=== PATIENT | female | born 1960 | race Caucasian/White ===

== ENCOUNTER → 2016-08-16 | Outpatient (CLI) | payer BC ==
--- NOTE | 2016-08-16 15:59 | MAMMOGRAPHY REPORT ---
BILATERAL DIGITAL SCREENING MAMMOGRAM TOMOSYNTHESIS WITH CAD: 08/16/2016 CLINICAL HISTORY: Routine screening. TECHNIQUE: Breast tomosynthesis in addition to standard 2D mammography was performed. Current study was also evaluated with a Computer Aided Detection (CAD) system. COMPARISON: Comparison is made to exams dated: 08/14/2015 mammogram - [facility], mammogram, 06/04/2013 mammogram, 05/31/2012 mammogram, 05/27/2011 mammogram, and 03/31/2010 mammog umberto - [facility]. BREAST COMPOSITION: There are scattered areas of fibroglandular density in both breasts. FINDINGS: There is evidence of prior reduction mammoplasty. There are a few scattered benign-appeari ng microcalcifications. No suspicious mass, architectural distortion or cluster of microcalcificatio ns is seen. IMPRESSION: ACR BI-RADS CATEGORY 1: NEGATIVE There is no mammographic evidence of malignancy. A 1 year screening mammogram is recommended. The pa tient will receive written notification of the results. Approximately 10% of breast cancers are not detected with mammography. A negative mammographic report should not delay biopsy if a clinically suggestive mass is present. Shira Galaviz M.D. ay/:08/16/2016 15:12:07 Airport Engineer: Jenny MORROW)(M), [facility] letter sent: Normal 1/2 BI-RADS Code: ACR BI-RADS Category 1: Negative
== END | disposition home or self-care (01) ==
LOC: C.MAMM 10:58
PROVIDERS: ATTEND Obstetrics & Gynecology
DX: Z12.31 Encounter for screening mammogram for malignant neoplasm of breast (principal)

== ENCOUNTER 2020-05-14 14:20 | Inpatient (IN) ==
[2020-05-14] MEDS ORDERED: KETOROLAC TROMETHAMINE 15 MG/ML VIAL IV ONE (14:43)
[2020-05-14] MEDS ORDERED: SODIUM CHLORIDE 0.9% 1000ML 2,000 ML IV ONE (14:43)
[2020-05-14] MEDS ORDERED: BENZONATATE 100 MG CAPSULE PO ONE (14:43)
--- NOTE | 2020-05-14 14:46 | Emergency Department Note ---
Impression & Plan Acute respiratory failure with hypoxia, Morbid obesity with BMI of 45.0-49.9, adult, COVID-19 virus infection, Cough ED Provider Note Who is CovidNAME: GINETTE MON AGE: 59 SEX: F : 1960 ARRIVES VIA: Walk-In INFORMANT: Patient ED PROVIDER(S): Marcell Morales DO CHIEF COMPLAINT: Covid positive and weak HPI: Patient is a 59-year-old female with a past medical history of thyroid dysfunction who presents to the ER for weakness. Her symptoms started on and she tested positive for Covid on Tuesday. She admits to shortness of breath. She has been having chest pain for the past 2 days. Is worse with coughing. Is midsternal. She also admits to diffuse weakness throughout her entire body including her belly. It is worse with coughing as well. She admits to nausea. No vomiting. Denies any dysuria, urgency, or frequency. She has been drinking a ton but notes that she is not urinating much. She does have a mild headache as well. Intermittent fevers as high as 101. ROS: See above HPI for pertinent positives & negatives. A total of 10 systems reviewed and were otherwise negative. PAST MEDICAL HISTORY:See Below PAST SURGICAL HISTORY:See Below FAMILY HISTORY:See Below SOCIAL HISTORY:See Below HOME MEDICATIONS:See Below ALLERGIES:See Below VITALS:See Below PHYSICAL EXAMINATION: GENERAL: Lying in bed, slightly ill-appearing, disheveled, persistent cough EYE EXAM: normal conjunctiva. PERRL and EOM's grossly intact. OROPHARYNX: no exudate, no erythema, lips, buccal mucosa, and tongue normal and mucous membranes are moist NECK: supple, no nuchal rigidity, no adenopathy, non-tender LUNGS: Clear to auscultation. Normal chest wall mechanics HEART: no murmurs, S1 normal and S2 normal ABDOMEN: abdomen soft, non-tender, normo-active bowel sounds, no masses, no rebound or guarding. UPPER EXTREMITIES: upper extremities are grossly normal. LOWER EXTREMITIES: No pitting edema. NEURO EXAM: Normal sensorium, cranial nerves II-XII grossly intact, normal speech, no gross weakness of arms, no gross weakness of legs. MEDICAL DECISION MAKING: Patient is a 59-year-old female who presents the ER positive with cough and shortness of breath. IV was established blood work obtained. She is found to have a leukopenia 3.8 thousand. No significant anemia. D-dimer was slightly elevated. BMP with LFTs bilirubin was unremarkable. CT angio of the chest showed multifocal pneumonia. BMP and lipase were negative. Patient was given IV fluids. She is given Decadron. She remained on nasal cannula and she dropped to 88%. She became very dyspneic with ambulation. She was updated and discussed with hospitalist for further evaluation. Triage Nursing notes reviewed. Limited review of prior medical records performed Vital Signs: reviewed and remarkable for HTN and tachy Differential diagnosis: Differential diagnoses includes but is not limited to pneumonia, bronchitis, COPD/Asthma exacerbation, pneumothorax, pulmonary embolism, congestive heart failure, acute coronary syndrome ER treatment provided: See below Diagnostics interpreted by me: ECG: Sinus tachycardia rate of 95 Normal axis No PVCs QTC 422 Cardiac Monitoring: An order was placed for continuous cardiac monitoring. The monitor shows a rate of 98 with sinus rhythm. Laboratory studies: As stated above and show below. Imaging studies: Portable AP upright 1 view the chest shows multifocal infiltrate CT Madeline of the chest shows multifocal infiltrates no PEs Consultation(s): Discussed the hospitalist for further evaluation Procedures: none PDMP:reviewed and no issues Critical Care: None Past Med/Surg History Social History Smoking Status: Never smoker Second Hand Exposure: No; Do You Dip or Chew Tobacco: No; Tobacco Cessation Education Requested by Patient: No Hx Alcohol Use: Yes Alcohol type: beer Hx Substance Use: No Preferred Language: Yemeni Communication Ability: Effective Set Up Mechanic Automatic Line Required: No Beliefs That Will Affect Care: None Current Living Situation: Spouse Other Information That Helps Us Care for You: No Feels Safe at Home: Yes Safety Concerns: Feels Safe At This Time Allergies Allergies Allergy/AdvReac Type Severity Reaction Status Date / Time acetaminophen Allergy Intermediate GI SYMPTOMS Verified 05/14/20 15:52 cyclobenzaprine Allergy Intermediate Vomiting Verified 05/14/20 15:52 metaxalone Allergy Intermediate GI SYMPTOMS Verified 05/14/20 15:52 oxycodone Allergy Intermediate GI SYMPTOMS Verified 05/14/20 15:52 Home Meds Home Medications Medication Instructions Recorded Confirmed acyclovir 200 mg PO UD PRN 05/14/20 05/14/20 albuterol sulfate [ProAir HFA] 2 puff INHALATION PRN 05/14/20 benzonatate 100 mg PO 05/14/20 ibuprofen 200 mg PO Q4H PRN 05/14/20 05/14/20 levothyroxine [Levoxyl] 112 mcg PO QAM 05/14/20 05/14/20 meclizine 25 mg PO TID PRN 05/14/20 05/14/20 ondansetron HCl 4 mg PO Q6H PRN 05/14/20 05/14/20 Results & Data (ED) Vital Signs Vital Signs - 24 hr 05/14/20 14:23 05/14/20 14:43 05/14/20 15:23 Temperature 36.8 C Temperature Source Temporal Artery Scan Pulse Rate 107 H Pulse Rate [Exercises] Pulse Rate [Right Finger] 89 Pulse Rate from SpO2 Sensor Pulse Rhythm Regular Pulse Strength Normal Respiratory Rate 18 24 Respiratory Rate [Exercises] Respiratory Effort / Characteristics Non-Labored Spontaneous Non-Labored Respiratory Depth Normal Normal Respiratory Pattern Regular Blood Pressure 157/95 H Blood Pressure [Right Arm] 113/76 Blood Pressure Mean 115 Blood Pressure Mean [Right Arm] 88 Blood Pressure Position Sitting Pulse Oximetry 94 95 95 Pulse Oximetry [Exercises] Oxygen Delivery Method Room Air Room Air Sepsis Recent Fever Within 48 Hours No Sepsis New/Unexplained Change in Mental Status N/A Sepsis Action Taken by Nursing No Action Required 05/14/20 17:52 05/14/20 17:54 05/14/20 18:45 Temperature Temperature Source Pulse Rate 96 H Pulse Rate [Exercises] 110 H Pulse Rate [Right Finger] 93 H Pulse Rate from SpO2 Sensor 97 H Pulse Rhythm Pulse Strength Respiratory Rate 16 19 Respiratory Rate [Exercises] 30 H Respiratory Effort / Characteristics Respiratory Depth Respiratory Pattern Blood Pressure Blood Pressure [Right Arm] 162/85 H Blood Pressure Mean Blood Pressure Mean [Right Arm] 110 Blood Pressure Position Pulse Oximetry 93 94 Pulse Oximetry [Exercises] 87 L Oxygen Delivery Method Room Air Room Air Sepsis Recent Fever Within 48 Hours Sepsis New/Unexplained Change in Mental Status Sepsis Action Taken by Nursing Laboratory Data Result diagrams: 05/14/20 15:11 05/14/20 15:11 Lab Results 05/14/20 05/14/20 05/14/20 Range/Units 15:11 15:11 15:11 WBC 3.83 L (4.8-10.8) K/uL RBC 4.87 (4.2-5.4) M/uL Hgb 15.1 (12.0-16.0) g/dL Hct 43.4 (37-47) % MCV 89.1 (80-100) fL MCH 31.0 (25-34) pg MCHC 34.8 (32-36) g/dL RDW Std Deviation 40.7 (36.4-46.3) fL RDW Coeff of Esteban 12.4 (11.5-14.5) % Plt Count 129 L (130-400) K/uL MPV 11.3 H (7.4-10.4) fL Immature Gran % (Auto) 0.5 % Neut % (Auto) 67.0 % Lymph % (Auto) 17.8 % King % (Auto) 14.4 % Eos % (Auto) 0.0 % Baso % (Auto) 0.3 % Neut # (Auto) 2.57 (1.4-6.5) K/uL Lymph # (Auto) 0.68 L (1.2-3.4) K/uL King # (Auto) 0.55 (0.11-0.59) K/uL Eos # (Auto) 0.00 (0-0.5) K/uL Baso # (Auto) 0.01 (0-0.2) K/uL Immature Gran # (Auto) 0.02 (0.00-0.02) K/uL Toxic Vacuolation 1+ ESR (0-21) mm/hr D-Dimer 840 H* (0-500) ug/L FEU Sodium 137 (136-145) mmol/L Potassium 3.8 (3.5-5.1) mmol/L Chloride 103 (98-107) mmol/L Carbon Dioxide 27 (21-32) mmol/L Anion Gap 7.0 (3-11) BUN 9 (7-18) mg/dl Creatinine 0.84 (0.6-1.2) mg/dl Est Cr Clr Drug Dosing 94.5 ml/min Est GFR ( Amer) 89.4 Est GFR (Non-Af Amer) 77.2 BUN/Creatinine Ratio 11.0 (10-20) Glucose 113 H (70-99) mg/dl Calcium 8.9 (8.5-10.1) mg/dl Total Bilirubin 0.7 (0.2-1) mg/dl AST 46 H (15-37) U/L ALT 46 (12-78) U/L Alkaline Phosphatase 98 (45-117) U/L Troponin I < 0.015 (0-0.045) ng/ml C-Reactive Protein (0-0.29) mg/dl NT-Pro-B Natriuret Pep (0-900) pg/ml Total Protein 8.0 (6.4-8.2) gm/dl Albumin 3.1 L (3.4-5.0) gm/dl Globulin 4.9 H (2.5-4.0) gm/dl Albumin/Globulin Ratio 0.6 L (0.9-2) Lipase 45 L (73-393) U/L 05/14/20 05/14/20 Range/Units 15:11 15:11 WBC (4.8-10.8) K/uL RBC (4.2-5.4) M/uL Hgb (12.0-16.0) g/dL Hct (37-47) % MCV (80-100) fL MCH (25-34) pg MCHC (32-36) g/dL RDW Std Deviation (36.4-46.3) fL RDW Coeff of Esteban (11.5-14.5) % Plt Count (130-400) K/uL MPV (7.4-10.4) fL Immature Gran % (Auto) % Neut % (Auto) % Lymph % (Auto) % King % (Auto) % Eos % (Auto) % Baso % (Auto) % Neut # (Auto) (1.4-6.5) K/uL Lymph # (Auto) (1.2-3.4) K/uL King # (Auto) (0.11-0.59) K/uL Eos # (Auto) (0-0.5) K/uL Baso # (Auto) (0-0.2) K/uL Immature Gran # (Auto) (0.00-0.02) K/uL Toxic Vacuolation ESR 36 H (0-21) mm/hr D-Dimer (0-500) ug/L FEU Sodium (136-145) mmol/L Potassium (3.5-5.1) mmol/L Chloride (98-107) mmol/L Carbon Dioxide (21-32) mmol/L Anion Gap (3-11) BUN (7-18) mg/dl Creatinine (0.6-1.2) mg/dl Est Cr Clr Drug Dosing ml/min Est GFR ( Amer) Est GFR (Non-Af Amer) BUN/Creatinine Ratio (10-20) Glucose (70-99) mg/dl Calcium (8.5-10.1) mg/dl Total Bilirubin (0.2-1) mg/dl AST (15-37) U/L ALT (12-78) U/L Alkaline Phosphatase (45-117) U/L Troponin I (0-0.045) ng/ml C-Reactive Protein 5.72 H (0-0.29) mg/dl NT-Pro-B Natriuret Pep 44 (0-900) pg/ml Total Protein (6.4-8.2) gm/dl Albumin (3.4-5.0) gm/dl Globulin (2.5-4.0) gm/dl Albumin/Globulin Ratio (0.9-2) Lipase (73-393) U/L Administered Medications Discontinued Medications Benzonatate (Benzonatate 100 Mg Capsule) 100 mg PO NOW ONE Stop: 05/14/20 14:44 Last Admin: 05/14/20 15:18 Dose: 100 mg Documented by: [id number] Dexamethasone Sodium Phosphate (DexamethasonePf 10 Mg/Ml Vial) 6 mg IV NOW ONE Stop: 05/14/20 18:08 Last Admin: 05/14/20 18:31 Dose: 6 mg Documented by: [id number] Sodium Chloride (Nss 1000ml) 2,000 mls @ 999 mls/hr IV .Q2H1M ONE Stop: 05/14/20 16:43 Last Infusion: 05/14/20 17:47 Dose: 0 mls/hr Documented by: [id number] Admin: 05/14/20 15:18 Dose: 999 mls/hr Documented by: [id number] Ioversol (Optiray 320 125ml) 119 ml IV ONCE ONE Stop: 05/14/20 16:56 Last Admin: 05/14/20 16:58 Dose: 119 ml Documented by: [id number] Ketorolac Tromethamine (Ketorolac Tromethamine 15 Mg/Ml Vial) 15 mg IV NOW ONE Stop: 05/14/20 14:44 Last Admin: 05/14/20 15:18 Dose: 15 mg Documented by: [id number] Morphine Sulfate (Morphine Sulfate 2 Mg/Ml Carp) 2 mg IV NOW STA Stop: 05/14/20 19:29 Last Admin: 05/14/20 19:47 Dose: 2 mg Documented by: [id number] Ondansetron HCl (Ondansetron Inj 2 Mg/Ml 2 Ml Vial) 4 mg IV NOW STA Stop: 05/14/20 19:28 Last Admin: 05/14/20 19:47 Dose: 4 mg Documented by: [id number] Discharge Plan Visit Data Chief Complaint: Cough Stated Complaint: [id number] OXYGEN-TEST POSITIVE TUESDAY ED Provider: Marcell Morales Discharge Problem: Acute respiratory failure with hypoxia, Morbid obesity with BMI of 45.0-49.9, adult, COVID-19 virus infection, Cough Patient Disposition: Admitted As Inpatient Discharge Instructions Interventions: ED Discharge Assessment Last Done: 05/14/20 19:53
[2020-05-14 15:29] LABS: Basophils # (auto) 0.01 K/uL (0-0.2); Basophils % (auto) 0.3 %; Hematocrit (blood only) 43.4 % (37-47); Hemoglobin 15.1 g/dL (12.0-16.0); Immature Granulocytes # (auto) 0.02 K/uL (0.00-0.02); Immature Granulocytes % (auto) 0.5 %; Lymphocytes # (auto) 0.68 K/uL (1.2-3.4); Lymphocytes % (auto) 17.8 %; Mean Corpuscular Hgb Conc 34.8 g/dL (32-36); Mean Corpuscular Volume 89.1 fL (80-100); Mean Platelet Volume 11.3 fL (7.4-10.4); Monocytes # (auto) 0.55 K/uL (0.11-0.59); Monocytes % (auto) 14.4 %; Neutrophils # (auto) 2.57 K/uL (1.4-6.5); Platelet Count 129 K/uL (130-400); RDW Coefficient of Variation 12.4 % (11.5-14.5); RDW Standard Deviation 40.7 fL (36.4-46.3); Red Blood Count 4.87 M/uL (4.2-5.4); White Blood Count 3.83 K/uL (4.8-10.8)
[2020-05-14 15:41] LABS: D Dimer 840 ug/L FEU (0-500)
[2020-05-14 15:54] LABS: Toxic Vacuolation 1+
--- NOTE | 2020-05-14 16:11 | XRay Report ---
XR chest 1V portable CLINICAL HISTORY: Atypical chest pain COMPARISON STUDY: Chest x-ray dated 10/06/2015 FINDINGS: The heart is mildly enlarged. There are bilateral interstitial opacities. Likely diagnostic considerations include multifocal pneumonia versus pulmonary edema.[There are no significant pleural effusions. IMPRESSION: 1. Bilateral interstitial pulmonary opacities. Likely diagnostic considerations include multifocal pn eumonia versus pulmonary edema. A multifocal pneumonia is favored. Clinical and radiographic follow-u p is recommended. ACT 112: Negative or not required by law. Electronically signed by: Reggie James M.D. 05/14/2020 4:10 PM
--- NOTE | 2020-05-14 16:11 | Electrocardiogram Report ---
Test Reason : Blood Pressure : / mmHG Vent. Rate : 095 BPM Atrial Rate : 095 BPM P-R Int : 154 ms QRS Dur : 066 ms QT Int : 336 ms P-R-T Axes : 050 003 051 degrees QTc Int : 422 ms Poor data quality, interpretation may be adversely affected Normal sinus rhythm Poor R wave progression, consider anterior TX vs. lead placement vs. LVH Abnormal ECG When compared with ECG of 21-MAR-2012 15:37, Nonspecific T wave abnormality now evident in Lateral leads Confirmed by Andrade Wheeler ([id number]) on 05/14/2020 4:10:43 PM Referred By: Confirmed By:Quan Wheeler
[2020-05-14 16:27] LABS: Alanine Aminotransferase 46 U/L (12-78); Albumin Globulin Ratio 0.6 (0.9-2); Albumin Level 3.1 gm/dl (3.4-5.0); Alkaline Phosphatase 98 U/L (45-117); Aspartate Aminotransferase 46 U/L (15-37); Bilirubin,Total 0.7 mg/dl (0.2-1); Blood Urea Nitrogen 9 mg/dl (7-18); Calcium 8.9 mg/dl (8.5-10.1); Carbon Dioxide 27 mmol/L (21-32); Chloride 103 mmol/L (98-107); Creatinine Clr Calc Pharmacy 94.5 ml/min; Est GFR (African American) 89.4; Est GFR (Non-African American) 77.2; Globulin 4.9 gm/dl (2.5-4.0); Glucose 113 mg/dl (70-99); Lipase 45 U/L (73-393); Potassium 3.8 mmol/L (3.5-5.1); Sodium 137 mmol/L (136-145); Troponin I < 0.015 ng/ml (0-0.045)
[2020-05-14] MEDS ORDERED: OPTIRAY 320 125ml IV ONE (16:55)
--- NOTE | 2020-05-14 17:13 | CT Scan Report ---
CT ANGIOGRAM OF THE CHEST CLINICAL HISTORY: Shortness of breath. Positive d-dimer. Covid positive patient COMPARISON STUDY: Chest x-ray dated 05/14/2020 TECHNIQUE: Following the IV administration of 119 mL of Optiray-320, CT angiogram of the thorax was p erformed from the thoracic inlet to the lung bases utilizing the pulmonary embolus protocol. Images a re reviewed in the axial, sagittal, and coronal planes. IV contrast was administered without complica tion. MIP imaging was performed. A dose lowering technique was utilized adhering to the principles o f ALARA. CT DOSE: 703.34 mGy.cm FINDINGS: There are mildly enlarged hilar lymph nodes, likely reactive. There was no evidence of thoracic aortic dilatation. There are no pulmonary artery filling defects to indicate acute pulmonary embolism. Evaluation is sli ghtly limited due to respiratory motion artifact No pleural effusions are visualized. There are multifocal groundglass opacities consistent with a multifocal pneumonia. The findings are t ypical but not diagnostic of Covid 19 pneumonia IMPRESSION: 1. No evidence of acute pulmonary embolism 2. Multifocal groundglass pulmonary opacities consistent with a multifocal pneumonia. The findings ar e typical of Covid 19 pneumonia ACT 112: Negative or not required by law. Electronically signed by: Reggie James M.D. 05/14/2020 5:12 PM
[2020-05-14] MEDS ORDERED: dexAMETHasone**PF** 10 MG/ML VIAL IV ONE (18:07)
--- NOTE | 2020-05-14 18:29 | History & Physical Report ---
Date of Service May 14, 2020 Assessment & Plan (1) COVID-19 virus infection: -Admit to COVID-19 unit, airborne isolation -Found to be hypoxic with O2 sats in 86% during ambulation on room air, normally does not require any O2 at baseline, tachycardic and elevated respiratory rate in the 30s during ambulation. -2 L O2 as needed, wean as tolerate -Start on Decadron, remdesivir, incentive spirometry, flutter, proning for 30 minutes as tolerated -Check esr, crp, procal, ferritin, pro-bnp -CTA reviewed and negative for PE, shows multifocal pna -Follow BCx x2, Ua negative and urine culture (2) Acute respiratory failure with hypoxia: -As above, secondary to coronavirus (3) Morbid obesity with BMI of 45.0-49.9, adult: -BMI 48.4, diet and exercise to be encouraged (4) Bronchitis: -History of such - will use albuterol hfa as needed (5) DVT prophylaxis: - teds, scds CODE: Full code-discussed with patient over the phone Dispo: From home, likely to remain in the hospital x 1-2 days Examination to be conducted by attending physician, please refer to his addendum for documentation. Information in the HPI was obtained via phone call due to COVID-19 infection, I did not personally go into the patient's room. History of Present Illness Chief Complaint: Shortness of breath Primary Care Provider: Severo Cali, This is a 59 yo F with PMhx of metabolic syndrome, hypothyroidism, morbid obesity with BMI of 48.4, bronchitis, and vertigo who presents to the ER with acute onset of cough and shortness of breath. Here while in the ER she was found to be 86% on room air during ambulation, heart rate in the 110s and respiratory rate in the 30s. Pt was having weakness, cough, stuffy nose, headache and went to get tested on 05/10/20. She lives at home with her and he is also positive. She was aware of her positive results on 05/11. Since Tuesday, the patient hasn't been out of bed due to ill feeling, very poor appetite, abdominal pain and cramping, she has also been nauseated. Denies diarrhea. She was febrile with fever of 101 today despite taking ibuprofen and tylenol in the past few days. She reports wasn't getting any better, felt chest heaviness, no pain per say, she had an oximeter at home and was at 88% at home and therefore came to the ER. 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 She wears a mask when out in public. She denies known positive contacts. She is found to be Covid positive after having COVID-19 testing conducted at [facility] urgent care clinic on 05/10/2020. Allergies Allergy/AdvReac Type Severity Reaction Status Date / Time cyclobenzaprine Allergy Intermediate Vomiting Verified 05/14/20 15:52 metaxalone Allergy Intermediate GI SYMPTOMS Verified 05/14/20 15:52 oxycodone Allergy Intermediate GI SYMPTOMS Verified 05/14/20 15:52 Home Medications Medication Instructions Recorded Confirmed Type acyclovir 200 mg PO UD PRN 05/14/20 05/14/20 History albuterol sulfate [ProAir HFA] 2 puff INHALATION PRN 05/14/20 History benzonatate 100 mg PO 05/14/20 History ibuprofen 200 mg PO Q4H PRN 05/14/20 05/14/20 History levothyroxine [Levoxyl] 112 mcg PO QAM 05/14/20 05/14/20 History meclizine 25 mg PO TID PRN 05/14/20 05/14/20 History ondansetron HCl 4 mg PO Q6H PRN 05/14/20 05/14/20 History Past Med/Surg History Social History Smoking Status: Never smoker Second Hand Exposure: No; Do You Dip or Chew Tobacco: No; Tobacco Cessation Education Requested by Patient: No Hx Alcohol Use: Yes Alcohol type: beer Hx Substance Use: No Preferred Language: Maltese Communication Ability: Effective Composition Weatherboard Applier Required: No Beliefs That Will Affect Care: None Current Living Situation: Spouse Other Information That Helps Us Care for You: No Feels Safe at Home: Yes Safety Concerns: Feels Safe At This Time Assistive Devices: Oxygen - Continuous Review of Systems Review of Systems: Constitutional: + fever, sweats, and weakness. Eyes: No diplopia, no worsening or blurred vision ENT: normal hearing, no trouble swallowing Respiratory: As per HPI. + chest heaviness, +cough, no sputum, no dyspnea at rest , + Dyspnea on exertion Cardiovascular: No chest pain, tightness or palpitations Abdomen: + pain, +nausea, no vomiting, diarrhea or constipation Musculoskeletal: No joint pain, calf pain, swelling Neurologic: No weakness, numbness/tingling, or balance problems Psychiatric: No anxiety or depression Skin: No rash or itch Physical Exam Physical Exam: Please refer to attending addendum as I did not personally examine the patient due to COVID-1 infection. Results & Data Results & Data ([facility]) Vital Signs (Past 12 Hours) Vital Signs Temp Pulse Pulse Pulse Resp Resp BP 05/14/20 17:54 110 H 30 H 05/14/20 17:52 93 H 16 05/14/20 15:23 89 24 05/14/20 14:43 05/14/20 14:23 36.8 C 107 H 18 157/95 H BP Pulse Ox Pulse Ox 05/14/20 17:54 87 L 05/14/20 17:52 162/85 H 93 05/14/20 15:23 113/76 95 05/14/20 14:43 95 05/14/20 14:[address] ANGIOGRAM OF THE CHEST CLINICAL HISTORY: Shortness of breath. Positive d-dimer. Covid positive patient COMPARISON STUDY: Chest x-ray dated 05/14/2020 TECHNIQUE: Following the IV administration of 119 mL of Optiray-320, CT angiogram of the thorax was performed from the thoracic inlet to the lung bases utilizing the pulmonary embolus protocol. Images are reviewed in the axial, sagittal, and coronal planes. IV contrast was administered without complication. MIP imaging was performed. A dose lowering technique was utilized adhering to the principles of ALARA. CT DOSE: 703.34 mGy.cm FINDINGS: There are mildly enlarged hilar lymph nodes, likely reactive. There was no evidence of thoracic aortic dilatation. There are no pulmonary artery filling defects to indicate acute pulmonary embolism. Evaluation is slightly limited due to respiratory motion artifact No pleural effusions are visualized. There are multifocal groundglass opacities consistent with a multifocal pneumonia. The findings are typical but not diagnostic of Covid 19 pneumonia IMPRESSION: 1. No evidence of acute pulmonary embolism 2. Multifocal groundglass pulmonary opacities consistent with a multifocal pneumonia. The findings are typical of Covid 19 pneumonia XR chest 1V portable CLINICAL HISTORY: Atypical chest pain COMPARISON STUDY: Chest x-ray dated 10/06/2015 FINDINGS: The heart is mildly enlarged. There are bilateral interstitial opacities. Likely diagnostic considerations include multifocal pneumonia versus pulmonary edema.[There are no significant pleural effusions. IMPRESSION: 1. Bilateral interstitial pulmonary opacities. Likely diagnostic considerations include multifocal pneumonia versus pulmonary edema. A multifocal pneumonia is f avored. Clinical and radiographic follow-up is recommended. ECG Additional Comments: Vent. Rate : 095 BPM Atrial Rate : 095 BPM P-R Int : 154 ms QRS Dur : 066 ms QT Int : 336 ms P-R-T Axes : 050 003 051 degrees QTc Int : 422 ms Poor data quality, interpretation may be adversely affected Normal sinus rhythm Poor R wave progression, consider anterior NH vs. lead placement vs. LVH Abnormal ECG When compared with ECG of 21-MAR-2012 15:37, Nonspecific T wave abnormality now evident in Lateral leads Confirmed by Andrade Wheeler ([id number]) on 05/14/2020 4:10:43 PM Code Status & VTE Plan Code Status Full code - discussed with pt with at bedside Supervising Physician Co-Signing Physician Notes Patient is 59-year-old female with past medical history of hypothyroidism and morbid obesity presents to the ED with worsening shortness of breath. Patient reported her symptoms started Tuesday and have started to progressively get worse also reports productive cough. Does report being febrile at home. Denies any nausea or vomiting. Appetite has been okay. Denies any chest pain, abdominal pain, diarrhea or any dysuria rest of the review of system is negative aspirin is also diagnosed with COVID-19 Acute hypoxic respiratory failure COVID-19 pneumonia History of hypothyroid Will start patient on Decadron/remdesivir. I did discuss regarding plasma with her, she stated that she is not sure about it yet. We will obtain C RP, ESR, ferritin and procalcitonin levels. I performed a history and physical examination of the patient on 05/14/20, including specifically H&P. I have discussed the patient's management with the advanced practitioner. Please refer to the Bela Stanley note for the documented findings and plan of care.
[2020-05-14 19:21] LABS: C Reactive Protein 5.72 mg/dl (0-0.29)
[2020-05-14] MEDS ORDERED: ONDANSETRON INJ 2 MG/ML 2 ML VIAL IV STA (19:27)
[2020-05-14] MEDS ORDERED: MoRPHine SULFATE 2 MG/ML CARP IV STA (19:28)
[2020-05-14] MEDS ORDERED: ONDANSETRON 4 MG OD TAB PO PRN (20:33)
[2020-05-14] MEDS ORDERED: MECLIZINE HCL 25 MG TAB PO PRN (20:34)
[2020-05-14] MEDS ORDERED: REMDESIVIR 200 MG in SODIUM CHLORIDE 0.9% 210 ML IV ONE (21:30)
[2020-05-14] MEDS ORDERED: ACETAMINOPHEN 325 MG TAB PO STA (23:39)
[2020-05-14] MEDS ORDERED: SODIUM CHLORIDE 0.9% 10ML FLUSH IV SCH (23:40)
[2020-05-14] MEDS ORDERED: ACETAMINOPHEN 325 MG TAB ONE (23:48)
[2020-05-15 04:13] LABS: Appearance Urine Clear (Clear); Bacteria Urine Automated Negative (Negative); Bilirubin Urine Negative (Negative); Blood Urine Negative (Negative); Color Urine Yellow; Epithelial Cell Urine Auto 20-30 /lpf (0-5); Glucose Urine UA Negative (Negative); Ketones Urine Negative (Negative); Leukocyte Esterase Urine 1+ (Negative); Nitrite Urine Negative (Negative); Protein Urine Trace (Negative); RBC Urine Automated 0-4 /hpf (0-4); Specific Gravity Urine 1.025 (1.000-1.030); Urobilinogen Urine Negative (Negative)
[2020-05-15] MEDS: LEVOTHYROXINE SODIUM 112 MCG TABLET PO SCH (06:12)
[2020-05-15 07:52] LABS: Hematocrit (blood only) 40.4 % (37-47); Hemoglobin 13.7 g/dL (12.0-16.0); Mean Corpuscular Hemoglobin 30.5 pg (25-34); Mean Corpuscular Hgb Conc 33.9 g/dL (32-36); Mean Platelet Volume 11.7 fL (7.4-10.4); Platelet Count 121 K/uL (130-400); RDW Coefficient of Variation 12.4 % (11.5-14.5); RDW Standard Deviation 40.5 fL (36.4-46.3); Red Blood Count 4.49 M/uL (4.2-5.4); White Blood Count 2.52 K/uL (4.8-10.8)
[2020-05-15] MEDS: dexAMETHasone 6 MG in SYRINGE 0 ML IV SCH (08:14)
[2020-05-15 08:27] LABS: Alanine Aminotransferase 39 U/L (12-78); Albumin Level 2.9 gm/dl (3.4-5.0); Aspartate Aminotransferase 36 U/L (15-37); BUN Creatinine Ratio 14.2 (10-20); Bilirubin Direct < 0.1 mg/dl (0-0.2); Blood Urea Nitrogen 9 mg/dl (7-18); Calcium 8.6 mg/dl (8.5-10.1); Carbon Dioxide 25 mmol/L (21-32); Chloride 107 mmol/L (98-107); Est GFR (African American) 113.7; Est GFR (Non-African American) 98.1; Glucose 139 mg/dl (70-99); Potassium 3.6 mmol/L (3.5-5.1); Sodium 138 mmol/L (136-145)
[2020-05-15 08:30] LABS: Albumin Globulin Ratio 0.7 (0.9-2); Alkaline Phosphatase 86 U/L (45-117); Bilirubin,Total 0.5 mg/dl (0.2-1); Globulin 3.9 gm/dl (2.5-4.0); Total Protein 6.8 gm/dl (6.4-8.2)
[2020-05-15] MEDS: BENZONATATE 100 MG CAPSULE PO PRN ×4 (09:40→23:16)
[2020-05-15] MEDS: MoRPHine SULFATE 2 MG/ML CARP IV PRN ×3 (09:40→23:16)
--- NOTE | 2020-05-15 11:07 | Hospitalist Progress Note ---
Date of Service May 15, 2020 Assessment & Plan (1) COVID-19 virus infection: Patient was found to be hypoxic on admission with saturation at 86%. Currently she remains on 2 L of nasal cannula. Reports that shortness of breath is improved continues to have productive cough now we will continue with Decadron/remdesivir. Incentive spirometer and flutter therpay has been ordered. CTA negative for PE multifocal pneumonia likely secondary to COVID-19. Blood and urine cultures were obtained on admission, pending. ESR of 36, CRP of 5.72, BNP of 44 (2) Acute respiratory failure with hypoxia: -As above, secondary to coronavirus (3) Morbid obesity with BMI of 45.0-49.9, adult: -BMI 48.4, diet and exercise to be encouraged (4) Bronchitis: Continue with albuterol as needed (5) DVT prophylaxis: - teds, scds CODE: Full code Admission and Anticipated Discharge Date Admission Date: May 14, 2020 Subjective Patient is doing okay this morning. He reports his shortness of breath is improved. Does have productive cough now. Denies any chest pain, palpitations or any dizziness does report abdominal discomfort with the coughing. Denies any diarrhea or dysuria. Rest of the review of systems negative. Review of Systems Review of Systems: All systems reviewed & are unremarkable except as noted in HPI & below Physical Exam Physical Exam: General: A&Ox3 HENT: NCAT, MMM, EOMI Eyes: PERRLA Neck: Supple, normal range of motion CVS: normal rate and rhythm Resp: b/l decreased breath sounds likely secondary to body habitus Abdomen: Soft, ND/NT, +BS Extremities: No c/c/e Neuro: face symmetric, strength grossly equal, no focal deficit Skin: warm and dry, no rashes/lesions/errythema MSK: normal ROM, no joint swelling/erythema Results & Data Results & Data ([facility]) Vital Signs (Past 12 Hours) Vital Signs Temp Pulse Pulse Resp BP Pulse Ox 05/15/20 08:00 62 05/15/20 07:22 36.7 C 69 20 138/86 92 05/15/20 03:56 36.6 C 74 20 117/79 93 05/15/20 01:19 37.2 C 05/14/20 23:36 38.2 C H 05/14/20 23:15 37.5 C 90 18 145/80 H 93
[2020-05-15] MEDS: ACETAMINOPHEN 325 MG TAB PO PRN (11:35)
[2020-05-15] MEDS: ENOXAPARIN INJ 40 MG/0.4 ML SYR SQ SCH ×2 (12:52→20:41)
[2020-05-15] MEDS: SODIUM CHLORIDE 0.9% 10ML FLUSH IV SCH (20:40)
[2020-05-15] MEDS: REMDESIVIR 100 MG in SODIUM CHLORIDE 0.9% 230 ML IV SCH (20:40)
[2020-05-16] MEDS: LEVOTHYROXINE SODIUM 112 MCG TABLET PO SCH (06:07)
[2020-05-16] MEDS: BENZONATATE 100 MG CAPSULE PO PRN ×2 (06:07→16:27)
[2020-05-16 07:30] LABS: Hemoglobin 13.9 g/dL (12.0-16.0); Mean Corpuscular Hemoglobin 30.9 pg (25-34); Mean Corpuscular Hgb Conc 34.8 g/dL (32-36); Mean Corpuscular Volume 88.9 fL (80-100); Mean Platelet Volume 11.6 fL (7.4-10.4); Platelet Count 159 K/uL (130-400); RDW Coefficient of Variation 12.4 % (11.5-14.5); RDW Standard Deviation 40.4 fL (36.4-46.3); White Blood Count 4.47 K/uL (4.8-10.8)
[2020-05-16 07:58] LABS: Albumin Level 2.7 gm/dl (3.4-5.0); BUN Creatinine Ratio 21.4 (10-20); Calcium 8.9 mg/dl (8.5-10.1); Creatinine Clr Calc Pharmacy 114.4 ml/min; Est GFR (African American) 111.5; Est GFR (Non-African American) 96.2; Potassium 3.5 mmol/L (3.5-5.1)
[2020-05-16 08:01] LABS: Albumin Globulin Ratio 0.7 (0.9-2); Bilirubin,Total 0.3 mg/dl (0.2-1); Globulin 3.8 gm/dl (2.5-4.0); Total Protein 6.5 gm/dl (6.4-8.2)
[2020-05-16] MEDS ORDERED: ALBUT/IPRATROP 3MG/0.5MG NEB 3 ML VIAL NEB PRN (08:13)
[2020-05-16] MEDS: dexAMETHasone 6 MG in SYRINGE 0 ML IV SCH (09:26)
[2020-05-16] MEDS: ENOXAPARIN INJ 40 MG/0.4 ML SYR SQ SCH ×2 (09:26→20:57)
[2020-05-16] MEDS ORDERED: DOCUSATE SODIUM 100 MG CAP PO PRN (11:15)
[2020-05-16] MEDS: ONDANSETRON INJ 2 MG/ML 2 ML VIAL IV PRN ×2 (11:31→23:39)
[2020-05-16] MEDS: POLYETHYLENE (MIRALAX) 17 GM PACK PO PRN (11:31)
--- NOTE | 2020-05-16 16:06 | Hospitalist Progress Note ---
Date of Service May 16, 2020 Assessment & Plan (1) COVID-19 virus infection: Acute respiratory failure with hypoxia COVID-19 pneumonia -CTA:No evidence of acute pulmonary embolism. Multifocal groundglass pulmonary opacities consistent with a multifocal pneumonia. The findings are typical of Covid 19 pneumonia COVID Screen:Positive on 05/10/20 CRP:5.72 D-Dimer:840 Blood Cultures: No growth to date Continue Remdesivir, Dexamethasone as per protocol Isolation precautions--Airborne/Contact Consult Pulmonology/ID if needed Encourage frequent Proning Continue Supplemental Oxygen as needed DVT prophylaxis on Lovenox Monitor LFTs, renal function while on Remdesivir Transition to high flow oxygen as needed Antitussives, lasix, Nebs as needed Pulmonary Hygiene Check Procalcitonin in AM Hypothyroidism Continue Levothyroxine (2) Acute respiratory failure with hypoxia: As above (3) Morbid obesity with BMI of 45.0-49.9, adult: 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 (4) Bronchitis: Secondary to COVID (5) DVT prophylaxis: Lovenox SQ CODE STATUS: Full code Admission and Anticipated Discharge Date Admission Date: May 14, 2020 Subjective Patient is seen and examined at bedside States feeling extremely tired Denies any significant dyspnea Reports cough with expectoration Denies chest pain, dizziness, nausea, abd pain, diarrhea Offers no other complaints Review of Systems Review of Systems: All systems reviewed & are unremarkable except as noted in HPI & below Physical Exam Physical Exam: Physical Exam: Vitals signs as noted above General Appearance:Morbidly Obese, no apparent distress Head: normocephalic, Atraumatic Eyes: normal inspection, EOMI Neck: supple, Trachea midline Respiratory/Chest: Decreased breath sounds, CTA, No accessory muscle use Cardiovascular: S1, S2, No murmur Abdomen/GI:Soft, Non tender, Bowel sounds present Extremities/Musculoskelatal:normal inspection, no edema Neurologic/Psych:AAOX3, grossly no focal neurological deficits Skin: normal color, warm Results & Data Results & Data ([facility]) Vital Signs (Past 12 Hours) Vital Signs Temp Pulse Pulse Resp BP Pulse Ox 05/16/20 15:52 36.5 C 74 18 146/86 H 87 L 05/16/20 15:40 36.8 C 73 24 115/78 90 05/16/20 12:31 36.5 C 74 19 130/76 90 05/16/20 07:33 37.1 C 66 20 116/72 92 05/16/20 06:20 68 Laboratory Results Short CBC 05/16/20 Range/Units 06:24 WBC 4.47 L (4.8-10.8) K/uL Hgb 13.9 (12.0-16.0) g/dL Hct 40.0 (37-47) % Plt Count 159 (130-400) K/uL BMP 05/16/20 06:24 Sodium 138 Potassium 3.5 Chloride 105 Carbon Dioxide 28 BUN 15 D Creatinine 0.70 Glucose 116 H Calcium 8.9 Liver Function 05/16/20 Range/Units 06:24 Total Bilirubin 0.3 (0.2-1) mg/dl AST 65 H (15-37) U/L ALT 56 (12-78) U/L Alkaline Phosphatase 85 (45-117) U/L Albumin 2.7 L (3.4-5.0) gm/dl
[2020-05-16] MEDS: REMDESIVIR 100 MG in SODIUM CHLORIDE 0.9% 230 ML IV SCH (19:41)
[2020-05-16] MEDS: ALBUTEROL HFA 8 GM INHALER INH PRN (19:49)
[2020-05-16] MEDS: SODIUM CHLORIDE 0.9% 10ML FLUSH IV SCH (20:59)
[2020-05-16] MEDS: MoRPHine SULFATE 2 MG/ML CARP IV PRN (23:36)
[2020-05-17] MEDS: ONDANSETRON INJ 2 MG/ML 2 ML VIAL IV PRN ×2 (05:50→11:27)
[2020-05-17] MEDS: LEVOTHYROXINE SODIUM 112 MCG TABLET PO SCH (06:17)
[2020-05-17] MEDS: BENZONATATE 100 MG CAPSULE PO PRN (06:17)
[2020-05-17 06:21] LABS: Hematocrit (blood only) 40.2 % (37-47); Hemoglobin 13.8 g/dL (12.0-16.0); Mean Corpuscular Hemoglobin 30.7 pg (25-34); Mean Corpuscular Hgb Conc 34.3 g/dL (32-36); Mean Corpuscular Volume 89.3 fL (80-100); Mean Platelet Volume 11.7 fL (7.4-10.4); Platelet Count 160 K/uL (130-400); RDW Coefficient of Variation 12.3 % (11.5-14.5); RDW Standard Deviation 40.1 fL (36.4-46.3); White Blood Count 3.99 K/uL (4.8-10.8)
[2020-05-17 06:52] LABS: Albumin Level 2.8 gm/dl (3.4-5.0); BUN Creatinine Ratio 24.2 (10-20); Calcium 8.5 mg/dl (8.5-10.1); Creatinine Clr Calc Pharmacy 123.2 ml/min; Est GFR (African American) 114.2; Est GFR (Non-African American) 98.6; Magnesium 2.2 mg/dl (1.8-2.4); Potassium 3.4 mmol/L (3.5-5.1)
[2020-05-17 06:55] LABS: Albumin Globulin Ratio 0.8 (0.9-2); Bilirubin,Total 0.4 mg/dl (0.2-1); Globulin 3.7 gm/dl (2.5-4.0); Total Protein 6.5 gm/dl (6.4-8.2)
[2020-05-17] MEDS ORDERED: POTASSIUM CHLORIDE CRTAB 20 MEQ TABCR PO ONE (07:46)
[2020-05-17] MEDS: dexAMETHasone 6 MG in SYRINGE 0 ML IV SCH (08:05)
[2020-05-17] MEDS: ENOXAPARIN INJ 40 MG/0.4 ML SYR SQ SCH ×2 (08:06→20:50)
[2020-05-17] MEDS: POLYETHYLENE (MIRALAX) 17 GM PACK PO PRN (08:18)
--- NOTE | 2020-05-17 08:27 | XRay Report ---
XR chest 1V portable HISTORY: Shortness of breath. COVID COMPARISON: 05/14/2020. FINDINGS: There are low lung volumes. The heart remains mildly enlarged. No pleural effusions. No pne umothorax. Extensive bilateral airspace opacities consistent with a pneumonia. This has progressed in the interval. IMPRESSION: Progressive bilateral airspace opacities consistent with a multifocal pneumonia. ACT 112: Negative or not required by law. Electronically signed by: Lenny Sam M.D. 05/17/2020 8:26 AM
[2020-05-17] MEDS ORDERED: FUROSEMIDE 20 MG TAB PO ONE (10:30)
[2020-05-17] MEDS: ALBUTEROL HFA 8 GM INHALER INH PRN (12:22)
[2020-05-17] MEDS: MoRPHine SULFATE 2 MG/ML CARP IV PRN ×2 (14:26→20:51)
--- NOTE | 2020-05-17 16:59 | Hospitalist Progress Note ---
Date of Service May 17, 2020 Assessment & Plan (1) COVID-19 virus infection: Acute respiratory failure with hypoxia COVID-19 pneumonia -CTA:No evidence of acute pulmonary embolism. Multifocal groundglass pulmonary opacities consistent with a multifocal pneumonia. 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 (4) Bronchitis: Secondary to COVID (5) DVT prophylaxis: Lovenox SQ CODE STATUS: Full code Admission and Anticipated Discharge Date Admission Date: May 14, 2020 Subjective Patient is seen and examined at bedside Currently on high flow oxygen to maintain saturations Reports cough with thick brownish expectoration Also reports nausea Still feels weak Denies any significant dyspnea Offers no other complaints Denies chest pain, dizziness,abd pain, diarrhea Review of Systems Review of Systems: All systems reviewed & are unremarkable except as noted in HPI & below Physical Exam Physical Exam: Physical Exam: Vitals signs as noted above General Appearance:Morbidly Obese, no apparent distress Head: normocephalic, Atraumatic Eyes: normal inspection, EOMI Neck: supple, Trachea midline Respiratory/Chest: Decreased breath sounds, CTA, No accessory muscle use Cardiovascular: S1, S2, No murmur Abdomen/GI:Soft, Non tender, Bowel sounds present Extremities/Musculoskelatal:normal inspection, no edema Neurologic/Psych:AAOX3, grossly no focal neurological deficits Skin: normal color, warm Results & Data Results & Data ([facility]) Vital Signs (Past 12 Hours) Vital Signs Temp Pulse Resp BP Pulse Ox 05/17/20 15:31 59 L 22 96 05/17/20 15:05 36.5 C 66 18 124/67 96 05/17/20 12:22 66 20 90 05/17/20 12:15 66 20 90 05/17/20 11:17 36.4 C L 75 20 106/70 91 05/17/20 09:35 66 20 94 05/17/20 07:13 37.0 C 68 20 106/65 93 Laboratory Results Short CBC 05/17/20 Range/Units 05:26 WBC 3.99 L (4.8-10.8) K/uL Hgb 13.8 (12.0-16.0) g/dL Hct 40.2 (37-47) % Plt Count 160 (130-400) K/uL BMP 05/17/20 05:26 Sodium 138 Potassium 3.4 L Chloride 104 Carbon Dioxide 30 BUN 16 Creatinine 0.65 Glucose 121 H Calcium 8.5 Liver Function 05/17/20 Range/Units 05:26 Total Bilirubin 0.4 (0.2-1) mg/dl AST 104 H (15-37) U/L ALT 85 H (12-78) U/L Alkaline Phosphatase 105 (45-117) U/L Albumin 2.8 L (3.4-5.0) gm/dl
[2020-05-17] MEDS: REMDESIVIR 100 MG in SODIUM CHLORIDE 0.9% 230 ML IV SCH (20:50)
[2020-05-17] MEDS: SODIUM CHLORIDE 0.9% 10ML FLUSH IV SCH (20:51)
[2020-05-18] MEDS: ACETAMINOPHEN 325 MG TAB PO PRN (00:31)
[2020-05-18] MEDS: ONDANSETRON INJ 2 MG/ML 2 ML VIAL IV PRN ×2 (00:32→08:34)
[2020-05-18] MEDS: LEVOTHYROXINE SODIUM 112 MCG TABLET PO SCH ×2 (05:22→08:24)
[2020-05-18] MEDS: dexAMETHasone 6 MG in SYRINGE 0 ML IV SCH (08:25)
[2020-05-18] MEDS: ENOXAPARIN INJ 40 MG/0.4 ML SYR SQ SCH ×2 (08:26→20:30)
[2020-05-18 08:35] LABS: Albumin Level 2.7 gm/dl (3.4-5.0); Calcium 9.1 mg/dl (8.5-10.1); Creatinine Clr Calc Pharmacy 138.1 ml/min; Est GFR (African American) 118.6; Est GFR (Non-African American) 102.3; Potassium 3.5 mmol/L (3.5-5.1)
[2020-05-18 08:38] LABS: Albumin Globulin Ratio 0.8 (0.9-2); Bilirubin,Total 0.4 mg/dl (0.2-1); Globulin 3.3 gm/dl (2.5-4.0)
[2020-05-18] MEDS: guaiFENesin 600 MG TABCR PO SCH ×2 (10:10→20:30)
--- NOTE | 2020-05-18 14:57 | Pulmonary Consultation ---
Date of Consultation May 18, 2020 Assessment & Plan (1) Acute respiratory failure with hypoxia: CT chest 05/14/2020 personally reviewed: Diffuse bilateral peripheral groundglass opacities appreciated affecting upper and lower lobes. No mediastinal lymphadenopathy. Chest x-ray 05/17/2020 personally reviewed: Portable film, poor inspiratory effort, bilateral diffuse alveolar opacities appreciated. Costophrenic and cardiophrenic angles are clean. --Acute hypoxic respiratory failure Secondary to multilobar pneumonia secondary to COVID-19 Procalcitonin 0.06 CRP 5.72 --> 1.56 Continue with dexamethasone 6 mg for total of 10 days Continue with remdesivir for total of 5 days. Monitor AST and ALT. They are trending up. Continue with high flow to keep O2 saturation 93-92% Can alternate between BiPAP given the patient has morbid obesity she might benefit from it. Awake proning is going to help the patient. Patient personally stated that her saturation goes up to 98% when she sleeping on the belly. Incentive spirometry Flutter valve with guaifenesin --Probable LAINEY BiPAP nightly and as needed shortness of breath Plan: Keep the patient euvolemic to negative balance. Patient is approximately 5.1 L positive since coming to the hospital again there is not a good measurement of the output. Recommend strict output. Continue with dexamethasone, remdesivir, incentive spirometry, guaifenesin and flutter valve. Patient CRP is already trending down. No need to increase the dose of dexamethasone. No indication for Tocilizumab. Patient was personally explained how to do spirometry. All question queries of the patient were answered in depth. Pulmonary will continue to follow. Please note the above document was generated using voice recognition software. It may contain grammatical, syntax or spelling errors.Any formal questions or concerns about the content, text or information contained within the body of this dictation should be directly addressed to the provider for clarification. (2) COVID-19 virus infection: (3) Bronchitis: (4) Cough: History of Present Illness Attending Physician: Anish Glasgow MD History of Present Illness 59-year-old female with past medical history of hypothyroidism, morbid obesity with a BMI of 49, bronchitis presented to the hospital with worsening shortness of breath. Her saturation in the ED was 86% on room air. Patient was positive for COVID-19 on 05/10/2020. Pulmonary consulted for increasing oxygen demand. At the time of examination patient was saturating 91-92% on 50% FiO2, 30 L high flow. I went up on flow to 35 L. Patient denied any chest pain. She does complain of fits of cough that is when she usually desaturates. Denied any respiratory distress. She is feeling better compared to before that is where she has been seen. Does not bring up any significant phlegm. Denies any nausea or vomiting. No diarrhea. No dysuria. No fever no chills. Social history: Non-smoker, no illicit drug use. No known history of asthma. Allergies Allergy/AdvReac Type Severity Reaction Status Date / Time cyclobenzaprine Allergy Intermediate Vomiting Verified 05/14/20 15:52 metaxalone Allergy Intermediate GI SYMPTOMS Verified 05/14/20 15:52 oxycodone Allergy Intermediate GI SYMPTOMS Verified 05/14/20 15:52 Home Medications Medication Instructions Recorded Confirmed Type acyclovir 200 mg PO UD PRN 05/14/20 05/14/20 History albuterol sulfate [ProAir HFA] 2 puff INHALATION PRN 05/14/20 History benzonatate 100 mg PO 05/14/20 History ibuprofen 200 mg PO Q4H PRN 05/14/20 05/14/20 History levothyroxine [Levoxyl] 112 mcg PO QAM 05/14/20 05/14/20 History meclizine 25 mg PO TID PRN 05/14/20 05/14/20 History ondansetron HCl 4 mg PO Q6H PRN 05/14/20 05/14/20 History Patient History Social History Smoking Status: Never smoker Second Hand Exposure: No; Do You Dip or Chew Tobacco: No; Tobacco Cessation Education Requested by Patient: No Hx Alcohol Use: Yes Alcohol type: beer Hx Substance Use: No Preferred Language: Thai Communication Ability: Effective 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 Beliefs That Will Affect Care: None Current Living Situation: Spouse Other Information That Helps Us Care for You: No Feels Safe at Home: Yes Safety Concerns: Feels Safe At This Time Assistive Devices: Oxygen - Continuous Review of Systems Review of Systems: All systems reviewed & are unremarkable except as noted in HPI & below Physical Exam Physical Exam: Constitutional: No acute distress HEENT: EOMI, PERRLA Respiratory system: Decreased air entry bilaterally, no wheeze, no rhonchi, posi tive crackles bilaterally CVS: S1-S2 positive, no murmurs or gallops Abdomen: Soft, nontender, nondistended, positive bowel sounds x4, obese Extremities: +2 pulses bilaterally radialis/ dorsalis pedis, no cyanosis, no edema Neuro: Awake alert oriented x3 Psych: Normal mood and affect G/U: No [place] Skin: no rashes, warm and dry Lymphatic: no cervical or axillary lymphadenopathy Results & Data Results & Data ([facility]) Vital Signs (Past 12 Hours) Vital Signs Temp Pulse Pulse Resp BP Pulse Ox 05/18/20 11:57 36.5 C 67 20 127/68 95 05/18/20 11:55 57 L 16 93 05/18/20 08:00 76 05/18/20 07:31 36.7 C 65 20 131/67 91 05/18/20 07:30 63 14 91 05/18/20 04:00 36.6 C 59 L 22 113/71 91 05/18/20 03:54 48 L 14 95 05/17/20 05:26 05/18/20 07:01 PG Care Time/CCT Total # of Minutes Spent Total Time Spent with Patient: Total time spent is greater than 50% in coordinat ion of care (as documented) at patient's floor/unit and/or counseling patient: Coding Level of Care Code 81512 Inpt Consult Level 4 Diagnoses Acute respiratory failure with hypoxia J96.01 COVID-19 virus infection U07.1 Bronchitis J40 Cough R05
[2020-05-18] MEDS ORDERED: FUROSEMIDE 20 MG TAB PO ONE (16:09)
--- NOTE | 2020-05-18 16:13 | Hospitalist Progress Note ---
Date of Service May 18, 2020 Assessment & Plan (1) COVID-19 virus infection: Acute respiratory failure with hypoxia COVID-19 pneumonia -CTA:No evidence of acute pulmonary embolism. Multifocal groundglass pulmonary opacities consistent with a multifocal pneumonia. The findings are typical of Covid 19 pneumonia COVID Screen:Positive on 05/10/20 CRP:5.72 D-Dimer:840 Procalcitonin 0.06 Blood Cultures: No growth to date Continue Remdesivir, Dexamethasone as per protocol Isolation precautions--Airborne/Contact Encourage frequent Proning DVT prophylaxis on Lovenox Monitor LFTs, renal function while on Remdesivir Continue pulmonary hygiene Continue high flow oxygen BiPAP as needed Will give a dose of lasix today Appreciate Pulmonology Input Hypothyroidism Continue Levothyroxine (2) Acute respiratory failure with hypoxia: As above (3) Morbid obesity with BMI of 45.0-49.9, adult: BMI 48 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 (4) Bronchitis: Secondary to COVID (5) DVT prophylaxis: Lovenox SQ CODE STATUS: Full code Admission and Anticipated Discharge Date Admission Date: May 14, 2020 Subjective Patient is seen and examined at bedside Sitting in chair during my encounter On high flow oxygen Less dyspnea, cough while on HF Denies chest pain, dizziness,abd pain, diarrhea Offers no other complaints Review of Systems Review of Systems: All systems reviewed & are unremarkable except as noted in HPI & below Physical Exam Physical Exam: Physical Exam: Vitals signs as noted above General Appearance:Morbidly Obese, no apparent distress Head: normocephalic, Atraumatic Eyes: normal inspection, EOMI Neck: supple, Trachea midline Respiratory/Chest: Decreased breath sounds, +B/L Basal Crackles Cardiovascular: S1, S2, No murmur Abdomen/GI:Soft, Non tender, Bowel sounds present Extremities/Musculoskelatal:normal inspection, no edema Neurologic/Psych:AAOX3, grossly no focal neurological deficits Skin: normal color, warm Results & Data Results & Data ([facility]) Vital Signs (Past 12 Hours) Vital Signs Temp Pulse Pulse Resp BP Pulse Ox 05/18/20 15:37 20 91 05/18/20 15:14 36.3 C L 72 20 130/81 92 05/18/20 11:57 36.5 C 67 20 127/68 95 05/18/20 11:55 57 L 16 93 05/18/20 08:00 76 05/18/20 07:31 36.7 C 65 20 131/67 91 05/18/20 07:30 63 14 91 Laboratory Results [facility] 05/18/20 07:01 Sodium 138 Potassium 3.5 Chloride 104 Carbon Dioxide 30 BUN 13 Creatinine 0.58 L Glucose 115 H Calcium 9.1 Liver Function 05/18/20 Range/Units 07:01 Total Bilirubin 0.4 (0.2-1) mg/dl AST 69 H (15-37) U/L ALT 94 H (12-78) U/L Alkaline Phosphatase 100 (45-117) U/L Albumin 2.7 L (3.4-5.0) gm/dl
[2020-05-18] MEDS: REMDESIVIR 100 MG in SODIUM CHLORIDE 0.9% 230 ML IV SCH (20:25)
[2020-05-18] MEDS: SODIUM CHLORIDE 0.9% 10ML FLUSH IV SCH (21:53)
[2020-05-19] MEDS: ONDANSETRON INJ 2 MG/ML 2 ML VIAL IV PRN (03:37)
[2020-05-19] MEDS: LEVOTHYROXINE SODIUM 112 MCG TABLET PO SCH (05:37)
[2020-05-19 07:06] LABS: Hematocrit (blood only) 41.5 % (37-47); Mean Corpuscular Hemoglobin 30.2 pg (25-34); Mean Corpuscular Hgb Conc 33.7 g/dL (32-36); Mean Corpuscular Volume 89.6 fL (80-100); Mean Platelet Volume 11.7 fL (7.4-10.4); Platelet Count 188 K/uL (130-400); RDW Coefficient of Variation 12.1 % (11.5-14.5); RDW Standard Deviation 39.5 fL (36.4-46.3); Red Blood Count 4.63 M/uL (4.2-5.4); White Blood Count 6.41 K/uL (4.8-10.8)
[2020-05-19 07:32] LABS: Albumin Level 2.7 gm/dl (3.4-5.0); BUN Creatinine Ratio 19.7 (10-20); Calcium 8.5 mg/dl (8.5-10.1); Creatinine Clr Calc Pharmacy 131.5 ml/min; Est GFR (African American) 114.2; Est GFR (Non-African American) 98.6; Potassium 3.4 mmol/L (3.5-5.1)
[2020-05-19 07:35] LABS: Albumin Globulin Ratio 0.7 (0.9-2); Bilirubin,Total 0.5 mg/dl (0.2-1); Globulin 3.8 gm/dl (2.5-4.0); Total Protein 6.5 gm/dl (6.4-8.2)
[2020-05-19] MEDS: dexAMETHasone 6 MG in SYRINGE 0 ML IV SCH (08:48)
[2020-05-19] MEDS: ENOXAPARIN INJ 40 MG/0.4 ML SYR SQ SCH ×2 (08:49→19:37)
[2020-05-19] MEDS: guaiFENesin 600 MG TABCR PO SCH ×2 (08:49→19:37)
--- NOTE | 2020-05-19 13:34 | Hospitalist Progress Note ---
Date of Service May 19, 2020 Assessment & Plan (1) COVID-19 virus infection: Acute respiratory failure with hypoxia COVID-19 pneumonia -CTA:No evidence of acute pulmonary embolism. Multifocal groundglass pulmonary opacities consistent with a multifocal pneumonia. The findings are typical of Covid 19 pneumonia. COVID Screen:Positive on 05/10/20 CRP:5.72 D-Dimer:840 Procalcitonin 0.06 Blood Cultures: No growth to date Continue Remdesivir, Dexamethasone as per protocol. Continue the incentive spirometer, flutter therapy and guaifenesin. Continue with Lovenox for DVT prophylaxis. Appreciate pulmonary medicine input. Continue with frequent proning. Hypothyroidism Continue Levothyroxine (2) Acute respiratory failure with hypoxia: As above. 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 Currently on the face mask. Reports shortness of breath is improved. Does have intermittent nonproductive cough. Appetite continues to be an issue. Reports food does not taste good. Denies any chest pain, abdominal pain, diarrhea or dysuria. Rest of the review of system is negative. Review of Systems Review of Systems: All systems reviewed & are unremarkable except as noted in HPI & below Results & Data Results & Data ([facility]) Vital Signs (Past 12 Hours) Vital Signs Temp Pulse Resp BP Pulse Ox 05/19/20 12:18 36.8 C 68 20 139/80 93 05/19/20 07:18 36.7 C 74 20 125/90 89 L 05/19/20 03:31 37.0 C 63 20 114/68 90
--- NOTE | 2020-05-19 16:32 | Pulmonology Progress Note ---
Date of Service May 19, 2020 Assessment & Plan (1) Acute respiratory failure with hypoxia: 59-year-old female with a past medical history of morbid obesity presenting to the hospital due to COVID-19 infection. She is currently on 11 L of oxygen via oxygen mask. Continue with Decadron 6 mg daily. Continue with DVT prophylaxis. No indication for Tocilizumab at this time. Continue self proning and ambulation around the room. No pulmonary interventions required at this time. Pulmonary will sign off. Please call with questions. Thank you for the consult. (2) COVID-19 virus infection: (3) Bronchitis: (4) Cough: Admission and Anticipated Discharge Date Admission Date: May 14, 2020 Subjective Patient seen and examined. Her breathing is better today. She is currently requiring 11 L of oxygen. She was mostly up in a chair today. No chest pain at this present time. No fevers or chills. Review of Systems Review of Systems: All systems reviewed & are unremarkable except as noted in HPI & below Physical Exam Physical Exam: Constitutional: No acute distress HEENT: EOMI, PERRLA Respiratory system: No use of accessory muscles. Clear to auscultation bilaterally. Diminished at the bases. CVS: S1-S2 positive, no murmurs or gallops Abdomen: Soft, nontender, nondistended, positive bowel sounds x4, obese Extremities: +2 pulses bilaterally radialis/ dorsalis pedis, no cyanosis, no edema Neuro: Awake alert oriented x3 Psych: Normal mood and affect G/U: No [place] Skin: no rashes, warm and dry Lymphatic: no cervical or axillary lymphadenopathy Results & Data Results & Data ([facility]) Vital Signs (Past 12 Hours) Vital Signs Temp Pulse Resp BP Pulse Ox 05/19/20 15:07 98.1 F 70 22 114/73 95 05/19/20 12:18 98.2 F 68 20 139/80 93 05/19/20 07:18 98.1 F 74 20 125/90 89 L Vital signs, labs and imaging reviewed. PG Care Time/CCT Total # of Minutes Spent Total Time Spent with Patient: Total time spent is greater than 50% in coordination of care (as documented) at patient's floor/unit and/or counseling patient: Coding Level of Care Code 83063 Subseq Hosp Care Lvl 2 Diagnoses Acute respiratory failure with hypoxia J96.01 COVID-19 virus infection U07.1 Bronchitis J40 Cough R05
[2020-05-20] MEDS: LEVOTHYROXINE SODIUM 112 MCG TABLET PO SCH (05:01)
[2020-05-20 06:48] LABS: Albumin Level 2.7 gm/dl (3.4-5.0); BUN Creatinine Ratio 19.3 (10-20); Calcium 8.4 mg/dl (8.5-10.1); Creatinine Clr Calc Pharmacy 123.8 ml/min; Est GFR (Non-African American) 96.6; Potassium 3.5 mmol/L (3.5-5.1)
[2020-05-20 06:50] LABS: Albumin Globulin Ratio 0.7 (0.9-2); Bilirubin,Total 0.4 mg/dl (0.2-1); Globulin 3.7 gm/dl (2.5-4.0); Total Protein 6.4 gm/dl (6.4-8.2)
[2020-05-20] MEDS: ENOXAPARIN INJ 40 MG/0.4 ML SYR SQ SCH ×2 (08:36→20:27)
[2020-05-20] MEDS: guaiFENesin 600 MG TABCR PO SCH ×2 (08:36→20:26)
[2020-05-20] MEDS: dexAMETHasone 6 MG in SYRINGE 0 ML IV SCH (08:36)
--- NOTE | 2020-05-20 11:28 | Hospitalist Progress Note ---
Date of Service May 20, 2020 Assessment & Plan (1) COVID-19 virus infection: Acute respiratory failure with hypoxia COVID-19 pneumonia -CTA:No evidence of acute pulmonary embolism. Multifocal groundglass pulmonary opacities consistent with a multifocal pneumonia. The findings are typical of Covid 19 pneumonia. COVID Screen:Positive on 05/10/20 CRP:5.72 D-Dimer:840 Procalcitonin 0.06 Blood Cultures: No growth to date Continue with Dexamethasone, completed Remdesivir Continue the incentive spirometer, flutter therapy and guaifenesin. Continue with Lovenox for DVT prophylaxis. Appreciate pulmonary medicine input. Continue with frequent proning. Will order one time Iv lasix 40 mg now. Hypothyroidism Continue Levothyroxine (2) Acute respiratory failure with hypoxia: As above. 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 Reports shortness of breath is improved. Does have intermittent productive cough. Remains afebrile. White count is within normal limit. Appetite is improving. Rest of the review of system is negative. Have been ambulating in the room. Review of Systems Review of Systems: All systems reviewed & are unremarkable except as noted in HPI & below Physical Exam Physical Exam: General: A&Ox3 HENT: NCAT, MMM, EOMI Eyes: PERRLA Neck: Supple, normal range of motion CVS: normal rate and rhythm Resp: b/l decreased breath sounds likely secondary to body habitus Abdomen: Soft, ND/NT, +BS Extremities: No c/c/e Neuro: face symmetric, strength grossly equal, no focal deficit Skin: warm and dry, no rashes/lesions/errythema MSK: normal ROM, no joint swelling/erythema Results & Data Results & Data ([facility]) Vital Signs (Past 12 Hours) Vital Signs Temp Pulse Pulse Resp BP Pulse Ox 05/20/20 10:47 36.4 C L 70 14 116/70 94 05/20/20 07:12 36.6 C 66 20 126/66 92 05/20/20 03:15 37.1 C 58 L 21 110/62 93 05/20/20 02:53 36.5 C 59 L 17 110/70 94 05/19/20 23:59 62
[2020-05-20] MEDS ORDERED: FUROSEMIDE 40 MG in SYRINGE 0 ML IV ONE (11:45)
[2020-05-20] MEDS ORDERED: FUROSEMIDE 40 MG/4 ML VIAL IV ONE (11:45)
[2020-05-21] MEDS: LEVOTHYROXINE SODIUM 112 MCG TABLET PO SCH (06:17)
[2020-05-21 06:48] LABS: Albumin Level 2.9 gm/dl (3.4-5.0); BUN Creatinine Ratio 23.2 (10-20); Calcium 8.6 mg/dl (8.5-10.1); Creatinine Clr Calc Pharmacy 121.4 ml/min; Est GFR (African American) 109.6; Est GFR (Non-African American) 94.6; Potassium 3.4 mmol/L (3.5-5.1)
[2020-05-21 06:51] LABS: Albumin Globulin Ratio 0.8 (0.9-2); Bilirubin,Total 0.5 mg/dl (0.2-1); Globulin 3.7 gm/dl (2.5-4.0); Total Protein 6.6 gm/dl (6.4-8.2)
[2020-05-21] MEDS ORDERED: POTASSIUM CHLORIDE CRTAB 20 MEQ TABCR PO STA (08:27)
[2020-05-21] MEDS: dexAMETHasone 6 MG in SYRINGE 0 ML IV SCH (08:44)
[2020-05-21] MEDS: guaiFENesin 600 MG TABCR PO SCH ×2 (08:44→20:05)
[2020-05-21] MEDS: ENOXAPARIN INJ 40 MG/0.4 ML SYR SQ SCH ×2 (08:44→20:04)
--- NOTE | 2020-05-21 13:39 | Hospitalist Progress Note ---
Date of Service May 21, 2020 Assessment & Plan (1) COVID-19 virus infection: Acute respiratory failure with hypoxia COVID-19 pneumonia -CTA:No evidence of acute pulmonary embolism. Multifocal groundglass pulmonary opacities consistent with a multifocal pneumonia. The findings are typical of Covid 19 pneumonia. COVID Screen:Positive on 05/10/20:CRP:5.72:D-Dimer:840:Procalcitonin 0.06 Blood Cultures: No growth to date Continue with Dexamethasone, completed Remdesivir Continue the incentive spirometer, flutter therapy and guaifenesin. Continue with Lovenox for DVT prophylaxis. Appreciate pulmonary medicine input. Continue with frequent proning. Received 40 mg of IV Lasix yesterday Clinically much better today We will continue current management Hypothyroidism Continue Levothyroxine (2) Acute respiratory failure with hypoxia: As above. (3) Morbid obesity with BMI of 45.0-49.9, adult: BMI 48 [employer]ement [employer] on diet and exercise (4) Bronchitis: Secondary to COVID (5) DVT prophylaxis: Lovenox SQ CODE STATUS: Full code Admission and Anticipated Discharge Date Admission Date: May 14, 2020 Subjective 05/21/2020 The patient was seen and examined in telemetry/Covid unit She has been feeling much better Still has the cough and moderate shortness of breath at rest She is requiring 3 L of nasal cannula oxygen to maintain saturation now Denies any fever and/or chills Review of Systems Review of Systems: All systems reviewed and are unremarkable except as noted below Respiratory: + cough, + dyspnea and + dyspnea on exertion; no wheezing Physical Exam Physical Exam: Sitting at the edge of the bed with mild shortness of breath Constitutional: well developed, well nourished, + ill appearing and + obese Eyes: PERRL, conjunctivae normal, anicteric sclerae ENMT: external ear and nose normal, oropharynx normal Neck: trachea midline, no thyromegaly Respiratory: + respiratory distress (Mild to moderate shortness of breath at rest) Auscultation: + diminished lung sounds and + crackles (Bibasilar crackles) Gastrointestinal (Abdomen): Inspection/Auscultation: normal bowel sounds; abdomen not distended Percussion/Palpation: abdomen soft; abdomen nontender Musculoskeletal: No acute arthritis in any joint Neurologic: Alert, awake and oriented x3. No focal sensory and motor deficit appreciated Psychiatric: A+Ox3, euthymic affect Lymphatic: no cervical or axillary lymphadenopathy Results & Data Results & Data ([facility]) Vital Signs (Past 12 Hours) Vital Signs Temp Pulse Pulse Resp BP Pulse Ox 05/21/20 10:59 36.2 C L 61 17 119/83 92 05/21/20 08:00 77 05/21/20 07:22 36.4 C L 70 17 119/71 94 05/21/20 04:00 37.1 C 56 L 21 107/73 94 05/21/20 03:16 36.8 C 75 18 144/82 H 91 Laboratory Results [facility] 05/21/20 05:39 Sodium 138 Potassium 3.4 L Chloride 104 Carbon Dioxide 31 BUN 17 Creatinine 0.71 Glucose 119 H Calcium 8.6 Liver Function 05/21/20 Range/Units 05:39 Total Bilirubin 0.5 (0.2-1) mg/dl AST 22 (15-37) U/L ALT 63 (12-78) U/L Alkaline Phosphatase 93 (45-117) U/L Albumin 2.9 L (3.4-5.0) gm/dl Medications Administered Current Inpatient Medications Acetaminophen (Acetaminophen 325 Mg Tab) 650 mg PO Q6H PRN PRN Reason: Fever Stop: 06/13/20 23:38 Last Admin: 05/18/20 00:31 Dose: 650 mg Documented by: Albuterol (Albuterol Hfa 8 Gm Inhaler) 2 puffs INH Q4H PRN PRN Reason: shortness of breath Stop: 06/13/20 18:49 Last Admin: 05/17/20 12:22 Dose: 2 puffs Documented by: Albuterol (Albut/Ipratrop 3mg/0.5mg Neb 3 Ml Vial) 3 ml NEB Q4R PRN PRN Reason: Shortness Of Breath Or Wheezing Stop: 06/15/20 10:59 Benzonatate (Benzonatate 100 Mg Capsule) 100 mg PO Q4H PRN PRN Reason: Cough Stop: 06/14/20 08:46 Last Admin: 05/17/20 06:17 Dose: 100 mg Documented by: Docusate Sodium (Docusate Sodium 100 Mg Cap) 100 mg PO BID PRN PRN Reason: Constipation Stop: 06/15/20 11:14 Last Admin: 05/16/20 11:31 Dose: 100 mg Documented by: Enoxaparin Sodium (Enoxaparin Inj 40 Mg/0.4 Ml Syr) 40 mg SQ BID [facility] Stop: 06/14/20 11:14 Last Admin: 05/21/20 08:44 Dose: 40 mg Documented by: Guaifenesin (Guaifenesin 600 Mg Tabcr) 1,200 mg PO Q12 [facility] Stop: 06/17/20 08:59 Last Admin: 05/21/20 08:44 Dose: 1,200 mg Documented by: Dexamethasone 6 mg/ Syringe 1.5 mls @ 1 mls/min IV DAILY [facility] Stop: 05/25/20 08:59 Last Admin: 05/21/20 08:44 Dose: 1 mls/min Documented by: Levothyroxine Sodium (Levothyroxine Sodium 112 Mcg Tablet) 112 mcg PO DAILYBB [facility] Stop: 06/14/20 06:29 Last Admin: 05/21/20 06:17 Dose: 112 mcg Documented by: Meclizine HCl (Meclizine Hcl 25 Mg Tab) 25 mg PO TID PRN PRN Reason: Dizziness Stop: 06/13/20 20:33 Morphine Sulfate (Morphine Sulfate 2 Mg/Ml Carp) 2 mg IV Q4 PRN PRN Reason: Pain Stop: 05/29/20 08:46 Last Admin: 05/17/20 20:51 Dose: 2 mg Documented by: Ondansetron HCl (Ondansetron 4 Mg Od Tab) 4 mg PO Q6H PRN PRN Reason: Nausea Stop: 06/13/20 20:32 Last Admin: 05/15/20 03:40 Dose: 4 mg Documented by: Ondansetron HCl (Ondansetron Inj 2 Mg/Ml 2 Ml Vial) 4 mg IV Q6H PRN PRN Reason: Nausea And Vomiting Stop: 06/15/20 11:11 Last Admin: 05/19/20 03:37 Dose: 4 mg Documented by: Polyethylene Glycol (Polyethylene (Miralax) 17 Gm Pack) 17 gm PO DAILY PRN PRN Reason: Constipation Stop: 06/15/20 11:12 Last Admin: 05/17/20 08:18 Dose: 17 gm Documented by:
[2020-05-22] MEDS: LEVOTHYROXINE SODIUM 112 MCG TABLET PO SCH (05:59)
[2020-05-22 07:43] LABS: BUN Creatinine Ratio 21.7 (10-20); Calcium 9.1 mg/dl (8.5-10.1); Est GFR (Non-African American) 91.4; Magnesium 2.3 mg/dl (1.8-2.4); Phosphorus 3.5 mg/dl (2.5-4.9); Potassium 3.8 mmol/L (3.5-5.1)
[2020-05-22] MEDS: dexAMETHasone 6 MG in SYRINGE 0 ML IV SCH (08:16)
[2020-05-22] MEDS: guaiFENesin 600 MG TABCR PO SCH ×2 (08:17→19:59)
[2020-05-22] MEDS: ENOXAPARIN INJ 40 MG/0.4 ML SYR SQ SCH ×2 (08:17→19:59)
[2020-05-22] MEDS ORDERED: POTASSIUM CHLORIDE CRTAB 20 MEQ TABCR PO STA (13:50)
--- NOTE | 2020-05-22 13:58 | Hospitalist Progress Note ---
Date of Service May 22, 2020 Assessment & Plan (1) COVID-19 virus infection: Acute respiratory failure with hypoxia COVID-19 pneumonia -CTA:No evidence of acute pulmonary embolism. Multifocal groundglass pulmonary opacities consistent with a multifocal pneumonia. The findings are typical of Covid 19 pneumonia. COVID Screen:Positive on 05/10/20:CRP:5.72:D-Dimer:840:Procalcitonin 0.06 Blood Cultures: No growth to date Continue with Dexamethasone, completed Remdesivir Continue the incentive spirometer, flutter therapy and guaifenesin. Continue with Lovenox for DVT prophylaxis. Appreciate pulmonary medicine input. Continue with frequent proning. Received 40 mg of IV Lasix yesterday 05/20/2020 Clinically much better today We will give another dose of Lasix with potassium today Likely discharge tomorrow and may need oxygen on discharge We will get a 2 steps O2 saturation test before discharge Hypothyroidism Continue Levothyroxine (2) Acute respiratory failure with hypoxia: As above. 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 (4) Bronchitis: Secondary to COVID (5) DVT prophylaxis: Lovenox SQ CODE STATUS: Full code Admission and Anticipated Discharge Date Admission Date: May 14, 2020 Subjective 05/21/2020 The patient was seen and examined in telemetry/Covid unit She has been feeling much better Still has the cough and moderate shortness of breath at rest She is requiring 3 L of nasal cannula oxygen to maintain saturation now Denies any fever and/or chills 05/22/2020 The patient was seen and examined in telemetry and Covid unit She has been feeling much better but is still requiring about 3 L of nasal cannula oxygen to maintain saturation Still has a cough but denies any fever and/or chills Review of Systems Review of Systems: All systems reviewed and are unremarkable except as noted below Respiratory: + cough, + dyspnea and + dyspnea on exertion; no wheezing Physical Exam Physical Exam: Sitting at the edge of the bed with mild shortness of breath Constitutional: well developed, well nourished, + ill appearing and + obese Eyes: PERRL, conjunctivae normal, anicteric sclerae ENMT: external ear and nose normal, oropharynx normal Neck: trachea midline, no thyromegaly Respiratory: + respiratory distress (Mild to moderate shortness of breath at rest) Auscultation: + diminished lung sounds and + crackles (Bibasilar crackles) Cardiovascular: Rate/Rhythm: regular rate and regular rhythm Heart Sounds: no murmur Extremities: + edema (Trace edema bilaterally) Gastrointestinal (Abdomen): Inspection/Auscultation: normal bowel sounds; abdomen not distended Percussion/Palpation: abdomen soft; abdomen nontender Musculoskeletal: No acute arthritis in any joint Neurologic: Alert, awake and oriented x3. No focal sensory and motor deficit appreciated Psychiatric: A+Ox3, euthymic affect Lymphatic: no cervical or axillary lymphadenopathy Results & Data Results & Data ([facility]) Vital Signs (Past 12 Hours) Vital Signs Temp Pulse Pulse Resp BP Pulse Ox 05/22/20 11:48 37.0 C 73 21 117/72 95 05/22/20 11:17 68 05/22/20 07:15 36.5 C 75 20 110/75 90 05/22/20 03:41 70 05/22/20 03:23 36.6 C 66 20 128/72 90 Laboratory Results [facility] 05/22/20 06:39 Sodium 138 Potassium 3.8 Chloride 104 Carbon Dioxide 29 BUN 16 Creatinine 0.73 Glucose 121 H Calcium 9.1 Medications Administered Current Inpatient Medications Acetaminophen (Acetaminophen 325 Mg Tab) 650 mg PO Q6H PRN PRN Reason: Fever Stop: 06/13/20 23:38 Last Admin: 05/18/20 00:31 Dose: 650 mg Documented by: Albuterol (Albuterol Hfa 8 Gm Inhaler) 2 puffs INH Q4H PRN PRN Reason: shortness of breath Stop: 06/13/20 18:49 Last Admin: 05/17/20 12:22 Dose: 2 puffs Documented by: Albuterol (Albut/Ipratrop 3mg/0.5mg Neb 3 Ml Vial) 3 ml NEB Q4R PRN PRN Reason: Shortness Of Breath Or Wheezing Stop: 06/15/20 10:59 Benzonatate (Benzonatate 100 Mg Capsule) 100 mg PO Q4H PRN PRN Reason: Cough Stop: 06/14/20 08:46 Last Admin: 05/17/20 06:17 Dose: 100 mg Documented by: Docusate Sodium (Docusate Sodium 100 Mg Cap) 100 mg PO BID PRN PRN Reason: Constipation Stop: 06/15/20 11:14 Last Admin: 05/16/20 11:31 Dose: 100 mg Documented by: Enoxaparin Sodium (Enoxaparin Inj 40 Mg/0.4 Ml Syr) 40 mg SQ BID [facility] Stop: 06/14/20 11:14 Last Admin: 05/22/20 08:17 Dose: 40 mg Documented by: Guaifenesin (Guaifenesin 600 Mg Tabcr) 1,200 mg PO Q12 [facility] Stop: 06/17/20 08:59 Last Admin: 05/22/20 08:17 Dose: 1,200 mg Documented by: Dexamethasone 6 mg/ Syringe 1.5 mls @ 1 mls/min IV DAILY [facility] Stop: 05/25/20 08:59 Last Admin: 05/22/20 08:16 Dose: 1 mls/min Documented by: Furosemide 40 mg/ Syringe 4 mls @ 4 mls/min IV ONE ONE Stop: 05/22/20 13:51 Levothyroxine Sodium (Levothyroxine Sodium 112 Mcg Tablet) 112 mcg PO DAILYBB [facility] Stop: 06/14/20 06:29 Last Admin: 05/22/20 05:59 Dose: 112 mcg Documented by: Meclizine HCl (Meclizine Hcl 25 Mg Tab) 25 mg PO TID PRN PRN Reason: Dizziness Stop: 06/13/20 20:33 Morphine Sulfate (Morphine Sulfate 2 Mg/Ml Carp) 2 mg IV Q4 PRN PRN Reason: Pain Stop: 05/29/20 08:46 Last Admin: 05/17/20 20:51 Dose: 2 mg Documented by: Ondansetron HCl (Ondansetron 4 Mg Od Tab) 4 mg PO Q6H PRN PRN Reason: Nausea Stop: 06/13/20 20:32 Last Admin: 05/15/20 03:40 Dose: 4 mg Documented by: Ondansetron HCl (Ondansetron Inj 2 Mg/Ml 2 Ml Vial) 4 mg IV Q6H PRN PRN Reason: Nausea And Vomiting Stop: 06/15/20 11:11 Last Admin: 05/19/20 03:37 Dose: 4 mg Documented by: Polyethylene Glycol (Polyethylene (Miralax) 17 Gm Pack) 17 gm PO DAILY PRN PRN Reason: Constipation Stop: 06/15/20 11:12 Last Admin: 05/17/20 08:18 Dose: 17 gm Documented by: Potassium Chloride (Potassium Chloride Crtab 20 Meq Tabcr) 40 meq PO NOW STA Stop: 05/22/20 13:51
[2020-05-22] MEDS ORDERED: FUROSEMIDE 40 MG in SYRINGE 0 ML IV ONE (14:30)
[2020-05-23] MEDS ORDERED: dexAMETHasone 4 MG TAB PO SCH
[2020-05-23] MEDS: LEVOTHYROXINE SODIUM 112 MCG TABLET PO SCH (05:49)
[2020-05-23 07:13] LABS: Calcium 8.9 mg/dl (8.5-10.1); Est GFR (Non-African American) 91.4; Potassium 3.9 mmol/L (3.5-5.1)
[2020-05-23] MEDS: ENOXAPARIN INJ 40 MG/0.4 ML SYR SQ SCH (09:06)
[2020-05-23] MEDS: guaiFENesin 600 MG TABCR PO SCH (09:07)
[2020-05-23] MEDS: dexAMETHasone 6 MG in SYRINGE 0 ML IV SCH (09:07)
--- NOTE | 2020-05-23 11:53 | Hospitalist Progress Note ---
Date of Service May 23, 2020 Assessment & Plan (1) COVID-19 virus infection: Acute respiratory failure with hypoxia COVID-19 pneumonia -CTA:No evidence of acute pulmonary embolism. Multifocal groundglass pulmonary opacities consistent with a multifocal pneumonia. The findings are typical of Covid 19 pneumonia. COVID Screen:Positive on 05/10/20:CRP:5.72:D-Dimer:840:Procalcitonin 0.06 Blood Cultures: No growth to date Continue with Dexamethasone, completed Remdesivir Continue the incentive spirometer, flutter therapy and guaifenesin. Continue with Lovenox for DVT prophylaxis. Appreciate pulmonary medicine input. Continue with frequent proning. Received 40 mg of IV Lasix yesterday 05/20/2020 Clinically much better today We will give another dose of Lasix with potassium today Likely discharge tomorrow and may need oxygen on discharge She requires 2 L of oxygen via nasal cannula while ambulating She does not require any more than strict isolation following the Covid infection as part of the infection control She will need to continue with the general preventive measures for Covid while at home Hypothyroidism Continue Levothyroxine (2) Acute respiratory failure with hypoxia: As above. 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 (4) Bronchitis: Secondary to COVID Much improved (5) DVT prophylaxis: Lovenox SQ CODE STATUS: Full code Will be discharged home this afternoon Admission and Anticipated Discharge Date Admission Date: May 14, 2020 Subjective 05/21/2020 The patient was seen and examined in telemetry/Covid unit She has been feeling much better Still has the cough and moderate shortness of breath at rest She is requiring 3 L of nasal cannula oxygen to maintain saturation now Denies any fever and/or chills 05/22/2020 The patient was seen and examined in telemetry and Covid unit She has been feeling much better but is still requiring about 3 L of nasal cannula oxygen to maintain saturation Still has a cough but denies any fever and/or chills 05/23/2020 The patient was seen and examined in telemetry and Covid unit She has been feeling a lot better today She underwent to do steps O2 saturation test and required 2 L/L nasal oxygen to maintain saturation while ambulating She will be discharged this afternoon Review of Systems Review of Systems: All systems reviewed and are unremarkable except as noted below Respiratory: + cough, + dyspnea and + dyspnea on exertion; no wheezing Physical Exam Physical Exam: Sitting at the edge of the bed with mild shortness of breath Constitutional: well developed, well nourished, + ill appearing and + obese Eyes: PERRL, conjunctivae normal, anicteric sclerae ENMT: external ear and nose normal, oropharynx normal Neck: trachea midline, no thyromegaly Respiratory: no respiratory distress (Mild to moderate shortness of breath at rest) Auscultation: + diminished lung sounds; no crackles (Bibasilar crackles) Cardiovascular: Rate/Rhythm: regular rate and regular rhythm Heart Sounds: no murmur Extremities: + edema (Trace edema bilaterally) Gastrointestinal (Abdomen): Inspection/Auscultation: normal bowel sounds; abdomen not distended Percussion/Palpation: abdomen soft; abdomen nontender Neurologic: Alert, awake and oriented x3. No focal sensory and motor deficit appreciated Psychiatric: A+Ox3, euthymic affect Lymphatic: no cervical or axillary lymphadenopathy Results & Data Results & Data ([facility]) Vital Signs (Past 12 Hours) Vital Signs Temp Pulse Pulse Pulse Pulse Pulse Pulse 05/23/20 11:08 36.6 C 79 05/23/20 09:22 110 H 112 H 93 H 84 05/23/20 07:56 36.6 C 71 05/23/20 07:34 64 05/23/20 04:00 36.6 C 60 Resp Resp Resp Resp Resp BP Pulse Ox 05/23/20 11:08 20 120/83 91 05/23/20 09:22 22 22 20 20 05/23/20 07:56 20 126/71 94 05/23/20 07:34 05/23/20 04:00 20 126/78 94 Pulse Ox Pulse Ox Pulse Ox Pulse Ox 05/23/20 11:08 05/23/20 09:22 91 86 L 93 93 05/23/20 07:56 05/23/20 07:34 05/23/20 04:00 Laboratory Results [facility] 05/23/20 05:22 Sodium 136 Potassium 3.9 Chloride 103 Carbon Dioxide 28 BUN 17 Creatinine 0.73 Glucose 127 H Calcium 8.9 Medications Administered Current Inpatient Medications Acetaminophen (Acetaminophen 325 Mg Tab) 650 mg PO Q6H PRN PRN Reason: Fever Stop: 06/13/20 23:38 Last Admin: 05/18/20 00:31 Dose: 650 mg Documented by: Albuterol (Albuterol Hfa 8 Gm Inhaler) 2 puffs INH Q4H PRN PRN Reason: shortness of breath Stop: 06/13/20 18:49 Last Admin: 05/17/20 12:22 Dose: 2 puffs Documented by: Albuterol (Albut/Ipratrop 3mg/0.5mg Neb 3 Ml Vial) 3 ml NEB Q4R PRN PRN Reason: Shortness Of Breath Or Wheezing Stop: 06/15/20 10:59 Benzonatate (Benzonatate 100 Mg Capsule) 100 mg PO Q4H PRN PRN Reason: Cough Stop: 06/14/20 08:46 Last Admin: 05/17/20 06:17 Dose: 100 mg Documented by: Docusate Sodium (Docusate Sodium 100 Mg Cap) 100 mg PO BID PRN PRN Reason: Constipation Stop: 06/15/20 11:14 Last Admin: 05/16/20 11:31 Dose: 100 mg Documented by: Enoxaparin Sodium (Enoxaparin Inj 40 Mg/0.4 Ml Syr) 40 mg SQ BID [facility] Stop: 06/14/20 11:14 Last Admin: 05/23/20 09:06 Dose: 40 mg Documented by: Guaifenesin (Guaifenesin 600 Mg Tabcr) 1,200 mg PO Q12 [facility] Stop: 06/17/20 08:59 Last Admin: 05/23/20 09:07 Dose: 1,200 mg Documented by: Dexamethasone 6 mg/ Syringe 1.5 mls @ 1 mls/min IV DAILY [facility] Stop: 05/25/20 08:59 Last Admin: 05/23/20 09:07 Dose: 1 mls/min Documented by: Levothyroxine Sodium (Levothyroxine Sodium 112 Mcg Tablet) 112 mcg PO DAILYBB [facility] Stop: 06/14/20 06:29 Last Admin: 05/23/20 05:49 Dose: 112 mcg Documented by: Meclizine HCl (Meclizine Hcl 25 Mg Tab) 25 mg PO TID PRN PRN Reason: Dizziness Stop: 06/13/20 20:33 Morphine Sulfate (Morphine Sulfate 2 Mg/Ml Carp) 2 mg IV Q4 PRN PRN Reason: Pain Stop: 05/29/20 08:46 Last Admin: 05/17/20 20:51 Dose: 2 mg Documented by: Ondansetron HCl (Ondansetron 4 Mg Od Tab) 4 mg PO Q6H PRN PRN Reason: Nausea Stop: 06/13/20 20:32 Last Admin: 05/15/20 03:40 Dose: 4 mg Documented by: Ondansetron HCl (Ondansetron Inj 2 Mg/Ml 2 Ml Vial) 4 mg IV Q6H PRN PRN Reason: Nausea And Vomiting Stop: 06/15/20 11:11 Last Admin: 05/19/20 03:37 Dose: 4 mg Documented by: Polyethylene Glycol (Polyethylene (Miralax) 17 Gm Pack) 17 gm PO DAILY PRN PRN Reason: Constipation Stop: 06/15/20 11:12 Last Admin: 05/17/20 08:18 Dose: 17 gm Documented by:
[2020-05-23] MEDS ORDERED: Nursing to Pharmacy Communication STA (14:22)
--- NOTE | 2020-05-24 08:37 | Discharge Summary ---
Date of Service May 24, 2020 Admission HPI Per Admitting Provider This is a 59 yo F with PMhx of metabolic syndrome, hypothyroidism, morbid obesity with BMI of 48.4, bronchitis, and vertigo who presents to the ER with acute onset of cough and shortness of breath. Here while in the ER she was found to be 86% on room air during ambulation, heart rate in the 110s and respiratory rate in the 30s. Pt was having weakness, cough, stuffy nose, headache and went to get tested on 05/10/20. She lives at home with her and he is also positive. She was aware of her positive results on 05/11. Since Tuesday, the patient hasn't been out of bed due to ill feeling, very poor appetite, abdominal pain and cramping, she has also been nauseated. Denies diarrhea. She was febrile with fever of 101 today despite taking ibuprofen and tylenol in the past few days. She reports wasn't getting any better, felt chest heaviness, no pain per say, she had an oximeter at home and was at 88% at home and therefore came to the ER. 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 She wears a mask when out in public. She denies known positive contacts. She is found to be Covid positive after having COVID-19 testing conducted at [facility] urgent [facility] clinic on 05/10/2020. Admission Exam Per Admitting Provider Physical Exam: General: A&Ox3 HENT: NCAT, MMM, EOMI Eyes: PERRLA Neck: Supple, normal range of motion CVS: normal rate and rhythm Resp: b/l decreased breath sounds likely secondary to body habitus Abdomen: Soft, ND/NT, +BS Extremities: No c/c/e Neuro: face symmetric, strength grossly equal, no focal deficit Skin: warm and dry, no rashes/lesions/errythema MSK: normal ROM, no joint swelling/erythema Principal Diagnosis Acute respiratory failure with hypoxia, COVID-19 pneumonia, hypothyroidism Discharge Exam Constitutional well developed, well nourished, + ill appearing and + obese Eyes PERRL, conjunctivae normal, anicteric sclerae ENMT external ear and nose normal, oropharynx normal Neck trachea midline, no thyromegaly Respiratory no respiratory distress (Mild to moderate shortness of breath at rest) Auscultation: + diminished lung sounds; no crackles (Bibasilar crackles) Cardiovascular Rate/Rhythm: regular rate and regular rhythm Heart Sounds: no murmur Extremities: + edema (Trace edema bilaterally) Gastrointestinal (Abdomen) Inspection/Auscultation: normal bowel sounds; abdomen not distended Percussion/Palpation: abdomen soft; abdomen nontender Psychiatric A+Ox3, euthymic affect Lymphatic no cervical or axillary lymphadenopathy Discharge Data Allergies Allergy/AdvReac Type Severity Reaction Status Date / Time cyclobenzaprine Allergy Intermediate Vomiting Verified 05/14/20 15:52 metaxalone Allergy Intermediate GI SYMPTOMS Verified 05/14/20 15:52 oxycodone Allergy Intermediate GI SYMPTOMS Verified 05/14/20 15:52 Consultations 05/14/20 18:07 ED Decision to Admit Stat 05/18/20 08:21 Consult Pulmonology Routine Ordered Studies 05/14/20 15:42 CT angio chest PE protocol Stat Hospital Course (1) COVID-19 virus infection: Acute respiratory failure with hypoxia COVID-19 pneumonia -CTA:No evidence of acute pulmonary embolism. Multifocal groundglass pulmonary opacities consistent with a multifocal pneumonia. The findings are typical of Covid 19 pneumonia. COVID Screen:Positive on 05/10/20:CRP:5.72:D-Dimer:840:Procalcitonin 0.06 Blood Cultures: No growth to date Continue with Dexamethasone, completed Remdesivir Continue the incentive spirometer, flutter therapy and guaifenesin. Continue with Lovenox for DVT prophylaxis. Appreciate pulmonary medicine input. Continue with frequent proning. Received 40 mg of IV Lasix yesterday 05/20/2020 Clinically much better today We will give another dose of Lasix with potassium today Likely discharge tomorrow and may need oxygen on discharge She requires 2 L of oxygen via nasal cannula while ambulating She does not require any more than strict isolation following the Covid infection as part of the infection control She will need to continue with the general preventive measures for Covid while at home Hypothyroidism Continue Levothyroxine (2) Acute respiratory failure with hypoxia: As above. (3) Morbid obesity with BMI of 45.0-49.9, adult: BMI 48 [employer] Super[employer] on diet and exercise (4) Bronchitis: Secondary to COVID Much improved (5) DVT prophylaxis: Lovenox SQ CODE STATUS: Full code Will be discharged home this afternoon Total Time Total Time Spent Total Time Spent (In Minutes): 35 minutes Total Time Includes: Examination of the Patient, Discharge Planning, Medication Reconciliation and Communication With Other Providers Discharge Plan Discharge Items Patient Disposition: Home - Self-Care Reason For Visit: COVID-19 INFECTION, ACUTRE HYPOXIC RESPIRATORY EDUARD Discharge Diagnosis: Acute respiratory failure with hypoxia, COVID-19 pneumonia, hypothyroidism Condition on Discharge: Good Activity: Resume your previous activity Non-emergency contact: Primary Care Provider Call non-emergency contact if: you have any medication questions and your symptoms worsen Follow-up/Referrals: Severo Cali DO [Primary Care Provider] - 05/28/20 2:20 pm (Date & Time 05/28/2020 2:20 PM Provider Severo Cali DO Department [facility] PLEASE NOTE THAT THIS IS A TELEVIDEO APPOINTMENT. PLEASE FOLLOW THE INSTRUCTIONS IN YOUR EMAIL. IF YOU HAVE ANY QUESTIONS REGARDING THIS APPOINTMENT, PLEASE CALL ) Diet: Heart Healthy Addtl Attending Provider Instructions: Use oxygen as prescribed specially when you are ambulating Try nspn-jdy-[id number] cough medicine Coronavirus disease 2019 (COVID-19) is a virus that causes a respiratory illness. It is caused by a coronavirus called 2019 novel coronavirus (2019- nCoV). There are many types of coronavirus. Coronaviruses are a very common cause of bronchitis. They may sometimes cause lung infection(pneumonia). Symptoms can range from mild to severe respiratory illness. These viruses are also foundin some animals. COVID-19 was first found in people in [facility], in late 2019. In 2020, several cases of COVID-19 have been confirmed in the [place] Public health officials are working to find the source. How the virus spreads is not yet fully known. It may be spread through droplets of fluid that a person coughs or sneezes into the air. It may be spread if you touch a surface with virus on it, such as a handle or object, and then touch your mouth. What are the symptoms of COVID-19? Some people have no symptoms or mild symptoms. Symptoms may appear 2 to 14 days after contact with the virus. Symptoms can include: Fever Coughing Trouble breathing What are possible complications from COVID-19? In many cases, this virus can cause infection (pneumonia) in both lungs. In some cases, this can cause . How is COVID-19 diagnosed? Your healthcare provider will ask about your symptoms. He or she will also ask about your recent travel and contact with sick people. Testing for the virus is only done through the CDC. If yourhealthcare provider thinks you may have COVID- 19, he or she will work with your local health department and the CDC on testing. Follow all instructions from your healthcare provider. COVID-19 is diagnosed by: Nasal and throat swab. A cotton-tipped swab is wiped inside your nose or throat. This is done to check for viruses in your nasal mucus. Sputum culture. A small sample of mucus coughed from your lungs (sputum) is collected if you have a cough. It is checked for the virus. How is COVID-19 treated? There is currently no medicine to treat the virus. Treatment is done to help your body while it fights the virus. This is known as supportive care. Supportive care may include: Pain medicine. These include acetaminophen and ibuprofen. They are used to help ease pain and reduce fever. Bed rest. This helps your body fight the illness. For severe illness, you may need to stay in the hospital. Care during severe illness may include: IV (intravenous) fluids.These are given through a vein to help keep your body hydrated. Oxygen. Supplemental oxygen or ventilation with a breathing machine (ventilator) may be given. This is done to keep enough oxygen in your body. Are you at risk for COVID-19? If youve been to a place where people have been sick with this virus, you are at risk for infection. You are at risk if you: Recently traveled to an affected area Had contact with a sick person who recently traveled to this area Had contact with a person who was diagnosed with COVID-19 How can COVID-19 be prevented? There is no vaccine yet. The best prevention is to not have contact with the virus. The CDC advises that people should not travel to areas where there are COVID-19 outbreaks right now for any reason that is not urgent. To help prevent spreading the infection, wash your hands often, or use an alcohol-basedhand trans router. If you are in an area with COVID-19: Wash your hands often. Or use an alcohol-based hand trans router often. Only touch your eyes, nose, or mouth with clean hands. Dont have contact with people who are sick. Follow local instructions about being in public. For example, you may be told to not use public transport for a period of time. Stay away from markets that have live or animals. Wash your hands after touching any animals. Don't touch animals that may be sick. Dont share eating or drinking tools with sick people. Dont kiss someone who is sick. Clean surfaces often with disinfectant. If you were in an area with COVID-19 in the last 14 days: Call your healthcare provider. He or she can talk with local health staff to see what action may be needed. Follow all instructions from your provider. Take your temperature every morning and evening for at least 14 days. This is to check for fever. Keep a record of the readings. Keep watch for symptoms of the virus. Tell your provider right away if you have symptoms. If you were in an area with COVID-19 and have a fever or other symptoms: Dont panic. Keep in mind that other illnesses can cause similar symptoms. Stay away from work, school, and public places. Limit physical contact with family members. Don't kiss anyone or share eating or drinking utensils. Clean surfaces you touch with disinfectant. This is to help prevent the virus from spreading. Call your healthcare provider. Explain that you have been exposed to COVID-19 and have symptoms. Do this before going to any hospital. Wait for instructions. Keep in mind that healthcare staff may wear protective equipment such as masks, gowns, gloves, and eye protection. You may be put in a separate room. This is to prevent the possible virus from spreading. Tell the healthcare staff about recent travel. This includes local travel on public transport. Staff may need to find other people you have been in contact with. Follow all instructions the healthcare staff give you. If you have been diagnosed with COVID-19 Follow all instructions from your healthcare provider. Dont leave your home, except to get medical care. Call your healthcare providers office before going. They can prepare and give you instructions. This will help prevent the virus from spreading. Dont go to work, school, or public areas. Dont use public transport or taxis. Stay away from other people in your home. Have them wear face masks around you. Dont share household items or food. Wear a face mask if you can. This includes at home or in a medical facility. Cover your face with a tissue when you cough or sneeze. Throw the tissue away. Wash your hands. Wash your hands often. Caregivers should: Follow all instructions from healthcare staff. Wear a face mask and protective clothing as advised. Wash hands often. Keep track of the sick persons symptoms. Clean surfaces, fabrics, and laundry thoroughly. Keep other people away from the sick person. When to call your healthcare provider Call your healthcare provider: If youve recently traveled and have symptoms If you have been diagnosed with COVID-19 and your symptoms are worse To learn more To find out more about COVID-19, visit the CDC website at www.cdc.gov/coronavirus/2019-ncov/index.html. [employer] [address] [place] [address]. All rights reserved. This information is not intended as a substitute for professional medical care. Always follow your healthcare professional's instructions. This information has been adapted from [employer] Pending Studies at Discharge: No Stand-Alone Forms: [facility], Smoking Cessation Medications and DC Order Prescriptions: Continued ondansetron HCl 4 mg tablet 4 mg PO Q6H PRN (Reason: Nausea) RF: 0 levothyroxine [Levoxyl] 112 mcg tablet 112 mcg PO QAM RF: 0 benzonatate 100 mg capsule 100 mg PO RF: 0 albuterol sulfate [ProAir HFA] 90 mcg/actuation Hfa Aerosol Inhaler 2 puff INHALATION PRN (Reason: Wheezing) RF: 0 acyclovir 200 mg 200 mg PO UD PRN (Reason: Outbreak) RF: 0 ibuprofen 200 mg 200 mg PO Q4H PRN (Reason: Pain) RF: 0 meclizine 25 mg tablet 25 mg PO TID PRN (Reason: Dizziness) RF: 0 Discharge Orders: Discharge Order (Routine); Ordered 05/23/20 Ordered By: Torey Wood Admission Data Admit Date/Time: 05/14/20 18:47 Attending Provider: Torey Wood Admit Provider: Alex Cabral Primary Care Provider: Severo Cali Other Providers: Alex Cabral ; Jazmin Kapoor Other Interventions: Discharge Summary Assessment (RN) Last Done: 05/23/20 13:58
== END 2020-05-23 15:45 | disposition home or self-care (01) | DRG 177 ==
LOC: ED 14:20 → 2E 18:47 → SUATTDRO 18:47 → 2E 19:53